=== PATIENT | female | born 2000 | race Caucasian/White ===

== ENCOUNTER 2025-01-13 12:58 | Outpatient (AMB) | payer MEDICAID, SELFPAY ==
--- NOTE | 2025-01-13 13:02 | AMB.OBINITIA ---
Vital Signs 01/13/25 13:15 Height 1.55 m Height Method Stated Weight 65.431 kg Weight Measurement Method Standing Scale BMI 27.2 BP 122/82 Blood Pressure Source Automatic Cuff Blood Pressure Location Right Upper Arm Position Sitting Respiration 17 Pulse 102 H Pulse Source Monitor Temp 97.8 F Temp Source Temporal Artery Scan Pulse Oximetry (%) 98 Oxygen Delivery Method Room Air Allergies/Home Meds Allergies & Medications Allergies No Known Allergies Allergy (Verified 01/13/25 13:16) Medication Reconciliation No Known Home Medications 01/13/25 [History Confirmed 01/13/25] Intake Visit Data Collection New Patient or Established: New Patient (never been to [facility]) Reason for Visit:: OBI Seen by Clinical Staff ONLY (RN/MA): No Automatic Equipment Technician Required: Yes Do You Feel Safe at Home: Yes Authorities Contacted: N/A PCP or OBGYN visit in last 3 months: No Hx Now: Yes Are you currently on any form of Control: No Pain Present Currently: No Pain Scale Used: Bronson-Parikh/Numerical Pain scale:: 0 Smoking Status Smoking Status: Never smoker Questionnaires Covid-19 Vaccine Questionnaire Has patient been vacinated for Covid-19 Have you been vacinated for Covid-19: No PHQ-9 PHQ-2 Over the last 2 weeks, how often have you been bothered by any of the following problems? 1. Little interest or pleasure in doing things: not at all 2. Feeling down, depressed, or hopeless: not at all Total score: 0 PHQ-9 3. Trouble falling or staying asleep, or sleeping too much: Not at all 4. Feeling tired or having little energy: Not at all 5. Poor appetite or overeating: Not at all 6. Feeling bad about yourself - or that you are a failure or have let yourself or your family down: Not at all 7. Trouble concentrating on things, such as reading the newspaper or watching television: Not at all 8. Moving or speaking so slowly that other people could have noticed? - Or the opposite - being so fidgety or restless that you have been moving around a lot more than usual: not at all 9. Thoughts that you would be better off or of hurting yourself in some way: Not at all Total score: 0 If you checked off any problems, how difficult have these problems made it for you to do your work, take care of things at home, or get along with other people?: not difficult at all Source: Developed by Drs. José Alejo, Sangeeta Chao, Pradeep Bassett and colleagues, with an educational chevy from [email or web address]. Depression screen completed yes Social History Living Situation History Marital Status: Lives With: Family Housing: House Tobacco History Smoking Status: Never smoker Alcohol History Alcohol Intake: Never Domestic Abuse History Do You Feel Safe at Home: Yes History of Present Illness HPI Narrative Melba Alvarez is a 24-year-old presenting for her initial care visit. She had a positive home test on December 08, 2024, and is now seeking her first visit. The patient reports her last menstrual period was on October 09, 2024. She mentions a previous visit to the ER, where they were unable to visualize the gestational sac, likely due to the early stage of her at that time. The patient denies any current spotting or cramping. She also denies experiencing nausea or vomiting. Prior to this visit, the patient had some blood tests done at [facility], but the results are not available for review. This is her first visit with an tower hand for this . Obstetric History - GPAL: A0 L0 - Current : - Gestational age: 11 weeks and 5 days by ultrasound - Positive home test on December 08, 2024 - Last menstrual period: October 09, 2024 Medical History - Emergency room visit in November 2024 Review of Systems Gastrointestinal: Positive for nausea. OB Initial Visit OB Flowsheet OB Flowsheet Initial Weight: Not Recorded Date <del>?</del> EGA Weight BP Alb Glu CTX Pres Fundal ht FHR Mov Dilation Station Effacement Hx Notes Visit Note 01/13/25 <del>?</del> 11w 5d 65.431 kg 122/82 at 11w5d, presenting for initial care. Positive home test on 12/08/24. LMP 10/09/24, dating confirmed by ultrasound performed today. FHT 157 bpm, viable IUP. Denies spotting, cramping, vomiting; mild nausea present. Prior ER visit noted no gestational sac, consistent with early . Labs drawn previously at [facility], results not yet available. Plan: CHERYL based on today?s ultrasound. labs ordered. Genetic screening and sex testing initiated. Provided US images. Follow-up in 4 weeks. Routine counseling given. Menstrual History Menstrual reliability: unknown Flow: normal Menstrual regularity: irregular Monthly: No Age at menarche: 12 On control pills at conception: No Date of positive home test: 12/08/24 OB History : 1 Para: 0 Hx # Pregnancies: 0 Hx Total # of Abortions (Spontaneous & Elective): 0 # of Living Children: 0 Infection History & Risk Evaluation History of STDs: none HIV risk evaluation: low risk Hepatitis B risk evaluation: low risk Patient or partner has history of Genital Herpes: No Varicella/chicken pox status: unknown Genetic Screening & History Genetic Screening/Teratology Counseling - Includes patient, baby's father, or anyone in either family with: 1. Patient's age 35 years or older as of estimated date of delivery: No 2. Thalassemia (Tuvaluan, Hungarian, Mediterranean, or Background); MCV less than 80: No 3. Neural Tube Defect (Meningomyelocele, Spina Bifida, or Anencephaly): No 4. Congenital Heart Defect: No 5. Down Syndrome: No 6. Viet-Sachs (Ashkenazi Roman Catholic, Cajun, Armenian Minco): No 7. Corby Disease (Ashkenazi Roman Catholic): No 8. Familial Dysautonomia (Ashkenazi Roman Catholic): No 9. Sickle Cell Disease or Trait (): No 10. Hemophilia or other blood disorders: No 11. Muscular Dystrophy: No 12. Cystic Fibrosis: No 13. Carolyne's Chorea: No 14. Mental Retardation/Autism: No 15. Other inherited genetic or chromosomal disorder: No 16. Maternal Metabolic Disorder (EG,TYPE 1 Diabetes, PKU): No 17. Patient or baby's father had a child with defects not listed above: No 18. Recurrent loss or a stillbirth: No 19. Medications (including supplements, vitamins, herbs or otc drugs)/illicit/recreational drugs/alcohol since last menstrual period: No 20. Any other: No Infection History 1. Live with someone with TB or exposed to TB: No 2. Rash or viral illness since last menstrual period: No 3. Hepatitis B,C: No Other (see comments) Source: [employer] Review of Systems Review of Systems Systems Reviewed: All systems reviewed, normal except as documented Exam General General Appearance: alert, in no apparent distress and healthy appearing Head Head exam: atraumatic Neck Neck exam: Present normal inspection and trachea midline Chest Chest inspection: Present normal inspection and symmetric chest wall rise External exam: Present normal external exam; Absent tenderness Neuro Neurological exam: Present oriented X3 Psych Psychiatric exam: Present normal affect and normal mood Office Procedures OB Clinic LOC & Office Proc's Nursing/Assessment Patient Status: Initial/New Patient OB Clinic Nursing Assessment: Medication Reconciliation, Update PMH in EMR and Vital Signs OB Clinic Coordination of Care: Complex Care and Chronic Disease 1-5, Consent,records obtained, informed consent, Education Simp Pt/Fam, Lab and Imaging orders and Staff clarify orders Special Needs: Heart tones New Patient Charge New Patient Point Assignment: [id number] New Patient Point Charge: TENSION WORKER Level 4 ([id number]) Assessment & Plan Diagnosis / Problem List (1) Supervision of high risk , unspecified, first trimester: Status: Acute (2) Uterine size date discrepancy: Status: Acute Plan Melba Alvarez, 24-year-old female presenting for initial care at approximately 8-10 weeks gestation based on last menstrual period. Intrauterine Assessment: Patient reports positive home test on December 08, 2024. Last menstrual period was October 09, 2024, initially suggesting 8-10 weeks gestation. Ultrasound performed during this visit confirms viable intrauterine measuring 11 weeks and 5 days. heartbeat noted at 157 bpm, which is within normal range. Previous ER visit (date not specified) did not visualize gestational sac, likely due to very early gestation at that time. Plan: - Calculated estimated due date based on ultrasound measurements - Ordered comprehensive labs - Ordered genetic testing, which will also determine sex - Provided patient with ultrasound images - Schedule follow-up appointment in 4 weeks
[2025-01-13 13:15] VITALS: BP 122/82; PULSE 102; RESP 17; TEMP 36.6; O2SAT 98; BMI 27.2
== END 2025-01-13 13:48 | disposition home or self-care (01) ==
LOC: HODSOBC 12:58
PROVIDERS: PCP Obstetrics & Gynecology; Referring Provider Obstetrics & Gynecology; Supervising Provider Obstetrics & Gynecology; Visit Provider Obstetrics & Gynecology
DX: O09.891 Supervision of other high risk pregnancies, first trimester (principal); O26.843 Uterine size-date discrepancy, third trimester; Z3A.11 11 weeks gestation of pregnancy
CPT/HCPCS: 99204; G0463

== ENCOUNTER → 2025-02-04 | Outpatient (CLI) | payer MEDICAID, SELFPAY ==
--- NOTE | 2025-02-04 14:14 | XR_ITS ---
Examination: Complete OB ultrasound, less than 14 weeks, transabdominal Date and time of exam: DecemberFebruary 04, 2025, 1428 hours INDICATIONS: with size dates discrepancy Technique: Obstetrical ultrasound images less than 14 weeks performed via transabdominal imaging Findings: A normal shaped single intrauterine gestation is present in the uterus. pole 8.2 cm corresponds to 14 weeks 1 day gestational age Cardiac motion 169 bpm Ultrasonographic survey of visible and placental structures unremarkable. Amniotic fluid volume appears appropriate for this estimated gestational age. Right ovary 2.0 cm arterial flow Left ovary 2.9 cm arterial flow IMPRESSION: Viable intrauterine gestation 13 weeks 1 day.
== END | disposition home or self-care (01) ==
PROVIDERS: PCP Physician Assistant; Referring Provider Obstetrics & Gynecology; Visit Provider Obstetrics & Gynecology
DX: O26.849 Uterine size-date discrepancy, unspecified trimester (principal); O09.91 Supervision of high risk pregnancy, unspecified, first trimester; Z3A.13 13 weeks gestation of pregnancy
CPT/HCPCS: 76801

== ENCOUNTER 2025-02-16 13:07 | Outpatient (AMB) | payer MEDICAID, SELFPAY ==
[2025-02-16 13:16] VITALS: BP 119/77; PULSE 105; RESP 22; TEMP 36.4; O2SAT 98; BMI 27.7
--- NOTE | 2025-02-16 13:16 | OBCLNT_ITS ---
Vital Signs 02/16/25 13:16 Height 1.55 m Height Method Stated Weight 66.678 kg Weight Measurement Method Standing Scale BMI 27.7 BP 119/77 Blood Pressure Source Automatic Cuff Blood Pressure Location Right Upper Arm Position Sitting Respiration 22 H Pulse 105 H Pulse Source Monitor Temp 97.5 F Temp Source Oral Pulse Oximetry (%) 98 Oxygen Delivery Method Room Air Allergies/Home Meds Allergies & Medications Allergies No Known Allergies Allergy (Verified 02/16/25 13:17) Medication Reconciliation No Known Home Medications 01/13/25 [History Confirmed 02/16/25] Intake Visit Data Collection New Patient or Established: Established Patient (seen at [facility] within 3 years) Reason for Visit:: CARE Seen by Clinical Staff ONLY (RN/MA): No Appellate Court Clerk Required: Yes Appellate Court Clerk's name/title: JOSE D ARGUELLO MA Do You Feel Safe at Home: Yes Authorities Contacted: N/A PCP or OBGYN visit in last 3 months: Yes Hx Now: Yes Are you currently on any form of Control: No Pain Present Currently: No Pain Scale Used: Bronson-Parikh/Numerical Pain scale:: 0 Smoking Status Smoking Status: Never smoker Questionnaires Covid-19 Vaccine Questionnaire Has patient been vacinated for Covid-19 Have you been vacinated for Covid-19: Yes PHQ-9 PHQ-2 Over the last 2 weeks, how often have you been bothered by any of the following problems? 1. Little interest or pleasure in doing things: not at all 2. Feeling down, depressed, or hopeless: not at all Total score: 0 PHQ-9 3. Trouble falling or staying asleep, or sleeping too much: Not at all 4. Feeling tired or having little energy: Not at all 5. Poor appetite or overeating: Not at all 6. Feeling bad about yourself - or that you are a failure or have let yourself or your family down: Not at all 7. Trouble concentrating on things, such as reading the newspaper or watching television: Not at all 8. Moving or speaking so slowly that other people could have noticed? - Or the opposite - being so fidgety or restless that you have been moving around a lot more than usual: not at all 9. Thoughts that you would be better off or of hurting yourself in some way: Not at all Total score: 0 Source: Developed by Drs. José Alejo, Sangeeta Chao, Pradeep Bassett and colleagues, with an educational chevy from [employer]. Depression screen completed yes Social History Living Situation History Lives With: Family Housing: House Tobacco History Smoking Status: Never smoker Alcohol History Alcohol Intake: Never Domestic Abuse History Do You Feel Safe at Home: Yes History of Present Illness HPI Narrative Melba Alvarez, , presents for routine visit at 16 weeks and 4 days gestation. Patient reports pain with urination. Denies blood in urine, fever, or back pain. Pain localized down here . Onset timing not specified. Denies TADEO, VC, and epigastric pain. - Melba Alvarez is a 1 para 0 at 16 weeks and 4 days gestation presenting for a routine visit. - Patient was last seen 4 weeks ago. - She reports her child has been experiencing pain while urinating. - Pain is localized down here (likely referring to lower abdominal or pelvic area). - No reported fever or back pain. - No mention of blood in the urine. - Onset timing not specified. - No other complaints or symptoms reported by the patient. Care OB Visit Log OB Flowsheet Initial Weight: Not Recorded Date -?-?-?-?-?-?-?-?-?-?-?-?- EGA Weight BP Alb Glu CTX Pres Fundal ht FHR Mov Dilation Station Effacement Hx Notes Visit Note 01/13/25 -?-?-?-?-?-?-?-?-?-?-?-?- 11w 5d 65.431 kg 122/82 at 11w5d, presenting for initial care. Positive home test on 12/08/24. LMP 10/09/24, dating confirmed by ultrasound performed today. FHT 157 bpm, viable IUP. Denies spotting, cramping, vomiting; mild nausea present. Prior ER visit noted no gestational sac, consistent with early . Labs drawn previously at [facility], results not yet available. Plan: CHERYL based on today?s ultrasound. P renatal labs ordered. Genetic screening and sex testing initiated. Provided US images. Follow-up in 4 weeks. Routine counseling given. CHERYL Calculator Estimated Delivery Date Method Current WG Current Estimate 07/30/25 Ultrasound #1 16w 4d Other Estimates 07/16/25 LMP (Certain) 18w 4d Exam General General Appearance: alert, in no apparent distress and healthy appearing Head Head exam: atraumatic Neck Neck exam: Present normal inspection and trachea midline Chest Chest inspection: Present normal inspection and symmetric chest wall rise External exam: Present normal external exam; Absent tenderness Neuro Neurological exam: Present oriented X3 Psych Psychiatric exam: Present normal affect and normal mood Office Procedures OB Clinic LOC & Office Proc's Nursing/Assessment Patient Status: Established Patient OB Clinic Nursing Assessment: Medication Reconciliation, Update PMH in EMR and Vital Signs OB Clinic Coordination of Care: Complex Care and Chronic Disease 1-5, Consent,records obtained, informed consent, Education Simp Pt/Fam, Lab and Imaging orders, Results/Orders obtained and Staff clarify orders Special Needs: Heart tones Established Patient Charge Established Patient Point Assignment: 135 Established Patient Point Charge: EP Level 4 (120-155) Assessment & Plan Diagnosis / Problem List (1) Uterine size date discrepancy: Status: Acute (2) Supervision of high risk , unspecified, first trimester: Status: Acute Plan Melba Alvarez is a 16 weeks and 4 days presenting for routine visit with recent negative labs and NIPT test. Routine care Assessment: Patient is at 16 weeks and 4 days gestation based on bedside ultrasound at 11 weeks. labs were reviewed and scanned into the chart. Blood group is B positive. Hepatitis B and C tests are negative. Rubella immune. Gonorrhea and chlamydia tests are negative. NIPT test is negative and indicates female fetus gender. heart rate is 175 bpm, which is within normal range. Plan: - Follow-up visit scheduled in 4 weeks - Referral for 20-week anatomy ultrasound pending approval - Provide gender reveal information in sealed envelope as per patient's request Urinary tract infection (suspected) Assessment: Patient reports pain with urination. No reported fever, back pain, or hematuria. Plan: - Order urine culture - Prescribe antibiotics - Educate patient on UTI symptoms and when to seek further care Heart Rate (FHR) and Dates/Viability Verified Review Labs: Confirm results and address any abnormalities with treatment or referrals. History & Symptoms: Ask about nausea, vomiting, bleeding, or cramping. Screen for mental health concerns. Physical Exam: Check weight, blood pressure, and heart rate (via Doppler). Education: Discuss nutrition, exercise, and avoiding harmful substances. Review safe medications and warning signs (e.g., severe pain, bleeding). Screening Tests: Offer genetic screening if not done. Discuss upcoming anatomy scan (18-20 weeks). Plan: Schedule next visit (typically 4 weeks later) and any needed tests. Keep it supportive, address concerns, and ensure clear follow-up instructions.
== END 2025-02-16 14:02 | disposition home or self-care (01) ==
LOC: HODSOBC 13:07
PROVIDERS: PCP Obstetrics & Gynecology; Referring Provider Obstetrics & Gynecology; Supervising Provider Obstetrics & Gynecology; Visit Provider Obstetrics & Gynecology
DX: O09.892 Supervision of other high risk pregnancies, second trimester (principal); Z3A.16 16 weeks gestation of pregnancy; O26.842 Uterine size-date discrepancy, second trimester; O99.820 Streptococcus B carrier state complicating pregnancy
CPT/HCPCS: 99214; G0463

== ENCOUNTER 2025-03-04 09:55 | Outpatient (AMB) | payer MEDICAID, SELFPAY ==
[2025-03-04 10:05] VITALS: BP 105/69; PULSE 82; RESP 17; TEMP 36.5; O2SAT 98; BMI 27.6
--- NOTE | 2025-03-04 10:05 | AMB.OBVISIT ---
Vital Signs 03/04/25 10:05 Height 1.55 m Height Method Measured Weight 66.395 kg Weight Measurement Method Standing Scale BMI 27.6 BP 105/69 Blood Pressure Source Automatic Cuff Blood Pressure Location Right Upper Arm Position Sitting Respiration 17 Pulse 82 Pulse Source Monitor Temp 97.7 F Temp Source Temporal Artery Scan Pulse Oximetry (%) 98 Oxygen Delivery Method Room Air Allergies/Home Meds Allergies & Medications Allergies No Known Allergies Allergy (Verified 03/04/25 10:06) Medication Reconciliation clotrimazole 2 % vaginal cream (Gyne-Lotrimin) 1 appful vaginal QHS 3 days #21 grams 03/04/25 [Rx] vits no.126-ferrous fum 28 mg iron-folic acid 800 mcg tablet (Classic ) tab PO 03/04/25 [History Confirmed 03/04/25] Intake Visit Data Collection New Patient or Established: Established Patient (seen at [facility] within 3 years) Reason for Visit:: OBC Consent obtained for Telemed Visit: No Seen by Clinical Staff ONLY (RN/MA): No Process Developer Required: No Do You Feel Safe at Home: Yes Authorities Contacted: N/A PCP or OBGYN visit in last 3 months: Yes Date of Last PCP or OBGYN visit: 02/16/25 Hx Now: Yes Are you currently on any form of Control: No Pain Present Currently: Yes Pain Location: Abdomen Pain scale:: 4 Smoking Status Smoking Status: Never smoker Questionnaires Covid-19 Vaccine Questionnaire Has patient been vacinated for Covid-19 Have you been vacinated for Covid-19: No PHQ-9 PHQ-2 Over the last 2 weeks, how often have you been bothered by any of the following problems? 1. Little interest or pleasure in doing things: not at all PHQ-9 8. Moving or speaking so slowly that other people could have noticed? - Or the opposite - being so fidgety or restless that you have been moving around a lot more than usual: not at all Source: Developed by Drs. José Alejo, Sangeeta Chao, Pradeep Bassett and colleagues, with an educational chevy from [employer]. Social History Living Situation History Lives With: Family Housing: House Tobacco History Smoking Status: Never smoker Alcohol History Alcohol Intake: Never Domestic Abuse History Do You Feel Safe at Home: Yes Care OB Visit Log OB Flowsheet Initial Weight: Not Recorded Date <del>?</del> EGA Weight BP Alb Glu CTX Pres Fundal ht FHR Mov Dilation Station Effacement Hx Notes Visit Note 01/13/25 <del>?</del> 11w 5d 65.431 kg 122/82 at 11w5d, presenting for initial care. Positive home test on 12/08/24. LMP 10/09/24, dating confirmed by ultrasound performed today. FHT 157 bpm, viable IUP. Denies spotting, cramping, vomiting; mild nausea present. Prior ER visit noted no gestational sac, consistent with early . Labs drawn previously at [facility], results not yet available. Plan: CHERYL based on today?s ultrasound. labs ordered. Genetic screening and sex testing initiated. Provided US images. Follow-up in 4 weeks. Routine counseling given. 03/04/25 <del>?</del> 18w 6d 66.395 kg 105/69 absent unknown 18 145 active Follow-up on ER visit. Patient was seen at [place] [address] for complaints of ligament pain and discomfort. Ultrasound was done and patient was 18 weeks 2 at that ultrasound. And this confirmed a due date August 01. She had positive yeast in the NuSwab. Otherwise her labs her CMP her CBC UA were all normal. Patient was treated with fluconazole x 1. She was also given Zofran 0.4 x 1 and discharged home. Today patient has continued burning with urination. Reports slight movement. No cramps no bleeding no leaking. New swab plus today. aFP today. I gave patient CHEMICAL PRODUCTION TECHNICIAN Lotrimin x [address] twice daily and discussed comfort measures for vaginitis. I also discussed comfort measures for second trimester discomforts. Patient says she has a follow-up appointment with OB March 10. And she has an MFM ultrasound scheduled for March. SAB precautions given. And patient return in 4 weeks OB check CHERYL Calculator Estimated Delivery Date Method Current WG Current Estimate 07/30/25 Ultrasound #1 18w 6d Other Estimates 07/16/25 LMP (Certain) 20w 6d Office Procedures OB Clinic LOC & Office Proc's Nursing/Assessment Patient Status: Established Patient OB Clinic Nursing Assessment: Medication Reconciliation, Update PMH in EMR and Vital Signs OB Clinic Coordination of Care: Complex Care and Chronic Disease 1-5, Consent,records obtained, informed consent, Education Simp Pt/Fam and 4+ Authorizations needed Special Needs: Heart tones Established Patient Charge Established Patient Point Assignment: 130 Established Patient Point Charge: EP Level 4 (120-155) Assessment & Plan Diagnosis / Problem List (1) Encounter for supervision of other normal , second trimester: Status: Acute (2) Vaginitis: Status: Acute Plan New swab today. Gyne-Lotrimin x 7 twice daily. Comfort measures for vaginitis discussed. Keep appointment for MFM ultrasound next month. And keep appointment with OB on March 10. Increase fluids. I reviewed discomforts that are normal to in the second trimester. Additional Plan Follow Up: 3 Weeks (obc)
== END 2025-03-04 10:42 | disposition home or self-care (01) ==
LOC: HODSOBC 09:55
PROVIDERS: PCP Physician Assistant; Referring Provider Physician Assistant; Supervising Provider Advanced Practice Midwife; Visit Provider Advanced Practice Midwife
DX: O09.892 Supervision of other high risk pregnancies, second trimester (principal); O23.592 Infection of other part of genital tract in pregnancy, second trimester; N76.0 Acute vaginitis; Z3A.18 18 weeks gestation of pregnancy
CPT/HCPCS: 99214; G0463

== ENCOUNTER 2025-03-19 08:26 | Outpatient (AMB) | payer MEDICAID, SELFPAY ==
[2025-03-19 08:31] VITALS: BP 110/76; PULSE 84; RESP 17; TEMP 36.5; O2SAT 98; BMI 28.2
--- NOTE | 2025-03-19 08:31 | OBCLNT_ITS ---
Vital Signs 03/19/25 08:31 Height 1.55 m Height Method Stated Weight 67.812 kg Weight Measurement Method Standing Scale BMI 28.2 BP 110/76 Blood Pressure Source Automatic Cuff Blood Pressure Location Right Upper Arm Position Sitting Respiration 17 Pulse 84 Pulse Source Monitor Temp 97.7 F Temp Source Temporal Artery Scan Pulse Oximetry (%) 98 Oxygen Delivery Method Room Air Allergies/Home Meds Allergies & Medications Allergies No Known Allergies Allergy (Verified 04/27/25 14:06) Medication Reconciliation clotrimazole 2 % vaginal cream (Gyne-Lotrimin) 1 appful vaginal QHS 3 days #21 grams 03/04/25 [Rx Confirmed 04/27/25] vits no.126-ferrous fum 28 mg iron-folic acid 800 mcg tablet (Classic ) tab PO 03/04/25 [History Confirmed 04/27/25] Intake Visit Data Collection New Patient or Established: Established Patient (seen at [facility] within 3 years) Reason for Visit:: OBC Seen by Clinical Staff ONLY (RN/MA): No Sleeper Cutter Required: Yes Sleeper Cutter's name/title: JOSE D SHARMA / RINA Do You Feel Safe at Home: Yes Authorities Contacted: N/A PCP or OBGYN visit in last 3 months: Yes Date of Last PCP or OBGYN visit: 03/04/25 Hx Now: Yes Are you currently on any form of Control: No Pain Present Currently: No Pain Scale Used: Bronson-Parikh/Numerical Pain scale:: 0 Smoking Status Smoking Status: Never smoker Questionnaires Covid-19 Vaccine Questionnaire Has patient been vacinated for Covid-19 Have you been vacinated for Covid-19: Yes PHQ-9 PHQ-2 Over the last 2 weeks, how often have you been bothered by any of the following problems? 1. Little interest or pleasure in doing things: not at all 2. Feeling down, depressed, or hopeless: not at all Total score: 0 PHQ-9 3. Trouble falling or staying asleep, or sleeping too much: Not at all 4. Feeling tired or having little energy: Not at all 5. Poor appetite or overeating: Not at all 6. Feeling bad about yourself - or that you are a failure or have let yourself or your family down: Not at all 7. Trouble concentrating on things, such as reading the newspaper or watching television: Not at all 8. Moving or speaking so slowly that other people could have noticed? - Or the opposite - being so fidgety or restless that you have been moving around a lot more than usual: not at all 9. Thoughts that you would be better off or of hurting yourself in some way: Not at all Total score: 0 If you checked off any problems, how difficult have these problems made it for you to do your work, take care of things at home, or get along with other people?: not difficult at all Source: Developed by Drs. José Alejo, Sangeeta Chao, Pradeep Bassett and colleagues, with an educational chevy from [email or web address]. Depression screen completed yes Social History Living Situation History Marital Status: Lives With: Family Housing: House Tobacco History Smoking Status: Never smoker Second Hand Smoke Exposure: No Alcohol History Alcohol Intake: Never Domestic Abuse History Do You Feel Safe at Home: Yes Care OB Visit Log OB Flowsheet Initial Weight: Not Recorded Date -?-?-?-?-?-?-?-?-?-?-?-?- EGA Weight BP Alb Glu CTX Pres Fundal ht FHR Mov Dilation Station Effacement Hx Notes Visit Note 01/13/25 -?-?-?-?-?-?-?-?-?-?-?-?- 11w 5d 65.431 kg 122/82 at 11w5d, presenting for initial care. Positive home test on 12/08/24. LMP 10/09/24, dating confirmed by ultrasound performed today. FHT 157 bpm, viable IUP. Denies spotting, cramping, vomiting; mild nausea present. Prior ER visit noted no gestational sac, consistent with early . Labs drawn previously at [facility], results not yet available. Plan: CHERYL based on today?s ultrasound. P renatal labs ordered. Genetic screening and sex testing initiated. Provided US images. Follow-up in 4 weeks. Routine counseling given. 03/04/25 -?-?-?-?-?-?-?--?-?-?-?-?- 18w 6d 66.395 kg 105/69 absent unknown 18 145 active Follow-up on ER visit. Patient was seen at [place] [id number] for complaints of ligament pain and discomfort. Ultrasound was done and patient was 18 weeks 2 at that ultrasound. And this confirmed a due date August 01. She had positive yeast in the NuSwab. Otherwise her labs her CMP her CBC UA were all normal. Patient was treated with fluconazole x 1. She was also given Zofran 0.4 x 1 and discharged home. Today patient has continued burning with urination. Reports slight movement. No cramps no bleeding no leaking. New swab plus today. aFP today. 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 I also discussed comfort measures for second trimester discomforts. Patient says she has a follow-up appointment with OB March 10. And she has an M ultrasound scheduled for March. SAB precautions given. And patient return in 4 weeks OB check 03/19/25 -?-?-?-?-?-?-?-?-?-?-?-?- 21w 0d 67.812 kg 110/76 absent unknown 22 140 active - Patient recently visited the emergency room and had a follow-up with Bree, who prescribed creams and tablets for an unspecified condition. - Patient reports completing the [facility] ribed treatment. - She states feeling better with no mo re discomfort and improved discharge. - Patient reports experiencing acid refl ux. - No other complaints or symptoms mentioned. - Attend scheduled ultrasound at [facility] on Saturday - Complete glucose tolerance test (patie nt given test order) - Take omeprazole for acid reflux for th e remainder of - Follow up with [facility] for potential repea t ultrasound due to low BFI (6.8) at 27- 28 weeks 04/27/25 -?-?-?-?-?-?-?-?-?-?-?-?- 26w 4d 70.874 kg 111/72 absent unknown 26 145 active No OB complaints. Denies cramping. Denies leaking, denies bleeding. Reports good Discussed third trimester labs. Discussed ultrasound and dates. Reviewed labor precautions. Increase fluids. Return in 3 weeks OB check CHERYL Calculator Estimated Delivery Date Method Current WG Current Estimate 07/30/25 Ultrasound #2 30w 4d Other Estimates 07/16/25 LMP (Certain) 32w 4d 07/30/25 Ultrasound #1 30w 4d 07/30/25 Manual 30w 4d final CHERYL: 07/12 05/06. efw: 52% Notes Visit Date: 04/27/25 Last Updated by: Bree Chand CNM 03/26: 3rd tri labs wnl Assessment & Plan Diagnosis / Problem List (1) Encounter for care in third trimester of first : Status: Acute (2) Vaginitis: Status: Acute (3) Uterine size date discrepancy: Status: Acute Plan Problem List - Gestational diabetes mellitus - Chronic hypertension - Gastroesophageal reflux disease Assessment Patient is a 21-week woman presenting for routine care. She recently visited the emergency room and was subsequently seen by Bree, who prescribed creams and tablets for an unspecified condition, which have since resolved her symptoms. The patient has a history of chronic hypertension and gestational diabetes mellitus, requiring significant insulin therapy. A recent biophysical profile (BPP) at triage revealed an amniotic fluid index (BRIJESH) of 6.8, which is considered low for gestational age. The patient also reports experiencing acid reflux symptoms. Plan - Attend scheduled ultrasound at [facility] on Saturday - Complete glucose tolerance test (patient given test order) - Take omeprazole for acid reflux for the remainder of - Follow up with [facility] for potential repeat ultrasound due to low BFI (6.8) at 27- 28 weeks 1. Progress Reviewed gestational age, growth, and heart rate. Planned frequent visits (every 2 weeks until 36 weeks, then weekly). 2. Instructed patient to monitor movements and report decreases immediately. 3. Testing Counseled on routine third-trimester labs per guidelines. Discussed potential need for ultrasound or monitoring based on risk factors. 4. Preeclampsia Precaution Educated on preeclampsia signs: severe headache, vision changes, right upper quadrant pain, sudden swelling. Advised urgent reporting of symptoms and discussed blood pressure monitoring if high risk. 5. Labor Precautions Reviewed labor signs: regular contractions, pelvic pressure, back pain, bleeding, or fluid leakage. Instructed to seek immediate care for these symptoms. 6. Lifestyle and Delivery Preparation Reinforced vitamins, nutrition, and safe activity. Discussed plan, pain management, and . Advised on labor preparation (e.g., hospital bag) and expectations. 7. Psychosocial Support Assessed emotional well-being and offered resources for mental health or parenting support.
== END 2025-03-19 09:04 | disposition home or self-care (01) ==
LOC: HODSOBC 08:26
PROVIDERS: PCP Physician Assistant; Referring Provider Physician Assistant; Supervising Provider Obstetrics & Gynecology; Visit Provider Obstetrics & Gynecology
DX: O09.892 Supervision of other high risk pregnancies, second trimester (principal); O26.842 Uterine size-date discrepancy, second trimester; O23.592 Infection of other part of genital tract in pregnancy, second trimester; N76.0 Acute vaginitis; O24.414 Gestational diabetes mellitus in pregnancy, insulin controlled; O10.912 Unspecified pre-existing hypertension complicating pregnancy, second trimester; O99.612 Diseases of the digestive system complicating pregnancy, second trimester; K21.9 Gastro-esophageal reflux disease without esophagitis; Z3A.21 21 weeks gestation of pregnancy
CPT/HCPCS: 99213; G0463

== ENCOUNTER 2025-04-27 13:34 | Outpatient (AMB) | payer MEDICAID, SELFPAY ==
[2025-04-27 14:05] VITALS: BP 111/72; PULSE 91; RESP 18; TEMP 36.3; O2SAT 98; BMI 29.5
--- NOTE | 2025-04-27 14:05 | OBCLNT_ITS ---
Vital Signs 04/27/25 14:05 Height 1.55 m Height Method Stated Weight 70.874 kg Weight Measurement Method Standing Scale BMI 29.5 BP 111/72 Blood Pressure Source Automatic Cuff Blood Pressure Location Left Upper Arm Position Sitting Respiration 18 Pulse 91 Pulse Source Monitor Temp 97.3 F Temp Source Oral Pulse Oximetry (%) 98 Oxygen Delivery Method Room Air Allergies/Home Meds Allergies & Medications Allergies No Known Allergies Allergy (Verified 04/27/25 14:06) Medication Reconciliation clotrimazole 2 % vaginal cream (Gyne-Lotrimin) 1 appful vaginal QHS 3 days #21 grams 03/04/25 [Rx Confirmed 04/27/25] vits no.126-ferrous fum 28 mg iron-folic acid 800 mcg tablet (Classic ) tab PO 03/04/25 [History Confirmed 04/27/25] Intake Visit Data Collection New Patient or Established: Established Patient (seen at [facility] within 3 years) Reason for Visit:: CARE Seen by Clinical Staff ONLY (RN/MA): No Junior Bookkeeper Required: No Do You Feel Safe at Home: Yes Authorities Contacted: N/A PCP or OBGYN visit in last 3 months: Yes Hx Now: Yes Are you currently on any form of Control: No Pain Present Currently: No Pain Scale Used: Bronson-Parikh/Numerical Pain scale:: 0 Smoking Status Smoking Status: Never smoker Questionnaires Covid-19 Vaccine Questionnaire Has patient been vacinated for Covid-19 Have you been vacinated for Covid-19: Yes PHQ-9 PHQ-2 Over the last 2 weeks, how often have you been bothered by any of the following problems? 1. Little interest or pleasure in doing things: not at all 2. Feeling down, depressed, or hopeless: not at all Total score: 0 PHQ-9 3. Trouble falling or staying asleep, or sleeping too much: Not at all 4. Feeling tired or having little energy: Not at all 5. Poor appetite or overeating: Not at all 6. Feeling bad about yourself - or that you are a failure or have let yourself or your family down: Not at all 7. Trouble concentrating on things, such as reading the newspaper or watching television: Not at all 8. Moving or speaking so slowly that other people could have noticed? - Or the opposite - being so fidgety or restless that you have been moving around a lot more than usual: not at all 9. Thoughts that you would be better off or of hurting yourself in some way: Not at all Total score: 0 Source: Developed by Drs. José Alejo, Sangeeta Chao, Pradeep Bassett and colleagues, with an educational chevy from [employer]. Depression screen completed yes Social History Living Situation History Lives With: Family Housing: House Tobacco History Smoking Status: Never smoker Second Hand Smoke Exposure: No Alcohol History Alcohol Intake: Never Domestic Abuse History Do You Feel Safe at Home: Yes Care OB Visit Log OB Flowsheet Initial Weight: Not Recorded Date -?-?-?-?-?-?-?-?-?-?-?-?- EGA Weight BP Alb Glu CTX Pres Fundal ht FHR Mov Dilation Station Effacement Hx Notes Visit Note 01/13/25 -?-?-?-?-?-?-?-?-?-?-?-?- 11w 5d 65.431 kg 122/82 at 11w5d, presenting for initial care. Positive home test on 12/08/24. LMP 10/09/24, dating confirmed by ultrasound performed today. FHT 157 bpm, viable IUP. Denies spotting, cramping, vomiting; mild nausea present. Prior ER visit noted no gestational sac, consistent with early . Labs drawn previously at [facility], results not yet available. Plan: CHERYL based on today?s ultrasound. P renatal labs ordered. Genetic screening and sex testing initiated. Provided US images. Follow-up in 4 weeks. Routine counseling given. 03/04/25 -?-?-?-?-?-?-?-?-?-?-?-?- 18w 6d 66.395 kg 105/69 absent unknown 18 145 active Follow-up on ER visit. Patient was seen at [place] [address] for complaints of ligament pain and discomfort. Ultrasound was done and patient was 18 weeks 2 at that ultrasound. And this confirmed a due date August 01. She had positive yeast in the NuSwab. Otherwise her labs her CMP her CBC UA were all normal. Patient was treated with fluconazole x 1. She was also given Zofran 0.4 x 1 and discharged home. Today patient has continued burning with urination. Reports slight movement. No cramps no bleeding no leaking. New swab plus today. aFP today. 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 I also discussed comfort measures for second trimester discomforts. Patient says she has a follow-up appointment with OB March 10. And she has an M ultrasound scheduled for March. SAB precautions given. And patient return in 4 weeks OB check 04/27/25 -?-?-?-?-?-?-?-?-?-?-?-?- 26w 4d 70.874 kg 111/72 absent unknown 26 145 active No OB complaints. Denies cramping. Denies leaking, denies bleeding. Reports good Discussed third trimester labs. Discussed ultrasound and dates. Reviewed labor precautions. Increase fluids. Return in 3 weeks OB check CHERYL Calculator Estimated Delivery Date Method Current WG Current Estimate 07/30/25 Ultrasound #2 26w 4d Other Estimates 07/16/25 LMP (Certain) 28w 4d 07/30/25 Ultrasound #1 26w 4d 07/30/25 Manual 26w 4d final CHERYL: 07/12 05/06. efw: 52% Notes Visit Date: 04/27/25 Last Updated by: Bree Chand CNM 03/26: 3rd tri labs wnl Office Procedures OB Clinic LOC & Office Proc's Nursing/Assessment Patient Status: Established Patient OB Clinic Nursing Assessment: Medication Reconciliation, Update PMH in EMR and Vital Signs OB Clinic Coordination of Care: Complex Care and Chronic Disease 1-5, Consent,records obtained, informed consent, Education Simp Pt/Fam, 1 Ins Authorization, Lab and Imaging orders, Results/Orders obtained and Staff clarify orders Special Needs: Heart tones Established Patient Charge Established Patient Point Assignment: 150 Established Patient Point Charge: EP Level 4 (120-155) Assessment & Plan Diagnosis / Problem List (1) Encounter for supervision of other normal , second trimester: Status: Acute Plan I discussed third trimester lab results and sono results. Discussed labor precautions. Continue to increase fluids. Continue vitamins. Return in 3 weeks check Additional Plan Follow Up: 3 Weeks (obc)
== END 2025-04-27 14:29 | disposition home or self-care (01) ==
LOC: HODSOBC 13:34
PROVIDERS: Supervising Provider Advanced Practice Midwife; Visit Provider Advanced Practice Midwife
DX: Z34.02 Encounter for supervision of normal first pregnancy, second trimester (principal); Z3A.26 26 weeks gestation of pregnancy
CPT/HCPCS: 99214; G0463

== ENCOUNTER 2025-05-26 13:14 | Outpatient (AMB) | payer MEDICAID, SELFPAY ==
[2025-05-26 13:17] VITALS: BP 117/79; PULSE 105; RESP 18; TEMP 36.2; O2SAT 98; BMI 30.4
--- NOTE | 2025-05-26 13:17 | OBCLNT_ITS ---
Vital Signs 05/26/25 13:17 Height 1.55 m Height Method Stated Weight 73.085 kg Weight Measurement Method Standing Scale BMI 30.4 BP 117/79 Blood Pressure Source Automatic Cuff Blood Pressure Location Left Upper Arm Position Sitting Respiration 18 Pulse 105 H Pulse Source Monitor Temp 97.1 F Temp Source Oral Pulse Oximetry (%) 98 Oxygen Delivery Method Room Air Allergies/Home Meds Allergies & Medications Allergies No Known Allergies Allergy (Verified 05/26/25 13:31) Medication Reconciliation clotrimazole 2 % vaginal cream (Gyne-Lotrimin) 1 appful vaginal QHS 3 days #21 grams 03/04/25 [Rx Confirmed 05/26/25] vits no.126-ferrous fum 28 mg iron-folic acid 800 mcg tablet (Classic ) tab PO 03/04/25 [History Confirmed 05/26/25] Intake Visit Data Collection New Patient or Established: Established Patient (seen at [facility] within 3 years) Reason for Visit:: CARE Seen by Clinical Staff ONLY (RN/MA): No 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 1. Little interest or pleasure in doing things: not at all 2. Feeling down, depressed, or hopeless: not at all Total score: 0 PHQ-9 3. Trouble falling or staying asleep, or sleeping too much: Not at all 4. Feeling tired or having little energy: Not at all 5. Poor appetite or overeating: Not at all 6. Feeling bad about yourself - or that you are a failure or have let yourself or your family down: Not at all 7. Trouble concentrating on things, such as reading the newspaper or watching television: Not at all 8. Moving or speaking so slowly that other people could have noticed? - Or the opposite - being so fidgety or restless that you have been moving around a lot more than usual: not at all 9. Thoughts that you would be better off or of hurting yourself in some way: Not at all Total score: 0 Source: Developed by Drs. José Alejo, Sangeeta Chao, Pradeep Bassett and colleagues, with an educational chevy from [employer]. Depression screen completed yes Social History Living Situation History Lives With: Family Housing: House Tobacco History Smoking Status: Never smoker Second Hand Smoke Exposure: No Alcohol History Alcohol Intake: Never Domestic Abuse History Do You Feel Safe at Home: Yes Care OB Visit Log OB Flowsheet Initial Weight: Not Recorded Date -?-?-?-?-?-?-?-?-?-?-?-?- EGA Weight BP Alb Glu CTX Pres Fundal ht FHR Mov Dilation Station Effacement Hx Notes Visit Note 01/13/25 -?-?-?-?-?-?-?-?-?-?-?-?- 11w 5d 65.431 kg 122/82 at 11w5d, presenting for initial care. Positive home test on 12/08/24. LMP 10/09/24, dating confirmed by ultrasound performed today. FHT 157 bpm, viable IUP. Denies spotting, cramping, vomiting; mild nausea present. Prior ER visit noted no gestational sac, consistent with early . Labs drawn previously at [facility], results not yet available. Plan: CHERYL based on today?s ultrasound. P renatal labs ordered. Genetic screening and sex testing initiated. Provided US images. Follow-up in 4 weeks. Routine counseling given. 03/04/25 -?-?-?-?-?-?-?-?-?-?-?-?- 18w 6d 66.395 kg 105/69 absent unknown 18 145 active Follow-up on ER visit. Patient was seen at [place] [address] for complaints of ligament pain and discomfort. Ultrasound was done and patient was 18 weeks 2 at that ultrasound. And this confirmed a due date August 01. She had positive yeast in the NuSwab. Otherwise her labs her CMP her CBC UA were all normal. Patient was treated with fluconazole x 1. She was also given Zofran 0.4 x 1 and discharged home. Today patient has continued burning with urination. Reports slight movement. No cramps no bleeding no leaking. New swab plus today. aFP today. I gave patient [employer] Lotrimin x [address] twice daily and discussed comfort measures for vaginitis. I also discussed comfort measures for second trimester discomforts. Patient says she has a follow-up appointment with OB March 10. And she has an [facility] ultrasound scheduled for March. SAB precautions given. And patient return in 4 weeks OB check 03/19/25 -?-?-?-?-?-?-?-?-?-?-?-?- 21w 0d 67.812 kg 110/76 absent unknown 22 140 active - Patient recently visited the emergency room and had a follow-up with Bree, who prescribed creams and tablets for an unspecified condition. - Patient reports completing the [facility] ribed treatment. - She states feeling better with no mo re discomfort and improved discharge. - Patient reports experiencing acid refl ux. - No other complaints or symptoms mentioned. - Attend scheduled ultrasound at [facility] on Saturday - Complete glucose tolerance test (patie nt given test order) - Take omeprazole for acid reflux for th e remainder of - Follow up with [facility] for potential repea t ultrasound due to low BFI (6.8) at 27-28 weeks 04/27/25 -?-?-?-?-?-?-?-?-?-?-?-?- 26w 4d 70.874 kg 111/72 absent unknown 26 145 active No OB complaints. Denies cramping. Denies leaking, denies bleeding. Reports good Discussed third trimester labs. Discussed ultrasound and dates. Reviewed labor precautions. Increase fluids. Return in 3 weeks OB check 05/26/25 -?-?-?-?-?-?-?-?-?-?-?-?- 30w 5d 73.085 kg 117/79 absent unknown 29 135 active Reports good movement. No OB complaints. Denies leaking, bleeding, contractions. Patient agrees to Tdap Tdap today. [facility] ultrasound for growth. Discussed labor precautions. Increase fluids. Continue prenatals. Return in 2 weeks OB CHERYL Calculator Estimated Delivery Date Method Current WG Current Estimate 07/30/25 Ultrasound #2 30w 5d Other Estimates 07/16/25 LMP (Certain) 32w 5d 07/30/25 Ultrasound #1 30w 5d 07/30/25 Manual 30w 5d final CHERYL: 07/12 05/06. efw: 52% Notes Visit Date: 04/27/25 Last Updated by: Bree Chand CNM 03/26: 3rd tri labs wnl Office Procedures OBC Clinic LOC & Office Proc's Nursing/Assessment Patient Status: Established Patient OB Clinic Nursing Assessment: Medication Reconciliation, Update PMH in EMR and Vital Signs OB Clinic Coordination of Care: Complex Care and Chronic Disease 1-5, Consent,records obtained, informed consent, Education Simp Pt/Fam, Lab and Imaging orders, Results/Orders obtained and Staff clarify orders Special Needs: Heart tones Established Patient Charge Established Patient Point Assignment: 135 Established Patient Point Charge: EP Level 4 (120-155) Injection/Vaccine Admin SQ Im Injection: Yes Immunizations diphth,pertus(acell),tetanus 2.5 Lf unit-8 mcg-5 Lf/0.5mL IM syringe Performing Provider: Bree Chand CNM Performing Location: [facility] Clinic Administered by: Shi Prajapati MA on 05/26/25 16:42 Dose Route Admin Location Dispensed Lot Number Expiration Date Pack age [facility] Community Representative 0.5 mL IM Left Deltoid 0.5 mL [id number] 09/08/26 [id number] mSeller VIS Given Date VIS Provided VIS Publication Date 05/26/25 Single Vaccine 24 Eligibility Eligibility Date Funding Source Public Non-[facility] Assessment & Plan Diagnosis / Problem List (1) Encounter for care in third trimester of first : Status: Acute Plan Tdap today. Ultrasound for growth. At [facility]. Discussed labor precautions. Increase fluids. Discussed danger signs symptoms. And return in 2 weeks OB check Additional Plan Follow Up: 2 Weeks (obc)
== END 2025-05-26 14:33 | disposition home or self-care (01) ==
LOC: HODSOBC 13:14
PROVIDERS: Supervising Provider Advanced Practice Midwife; Visit Provider Advanced Practice Midwife
DX: Z34.03 Encounter for supervision of normal first pregnancy, third trimester (principal); Z3A.30 30 weeks gestation of pregnancy; Z23 Encounter for immunization
CPT/HCPCS: 90471; 90715; 96372; 99214; G0463

== ENCOUNTER 2025-06-10 16:58 | Observation (INO) | payer MEDICAID, SELFPAY ==
[2025-06-10] VITALS (15 sets, daily range): BP systolic 112–117; BP diastolic 71; PULSE 74–91; RESP 16–98; TEMP 37; O2SAT 89–99; BMI 29.6
--- NOTE | 2025-06-10 17:44 | XR_ITS ---
Examination: OB Transvaginal ultrasound of the pelvis, limited Technique: Transvaginal sonographic images pelvis performed using braxton scale imaging Exam date and time: June 10, 2025, 1752 hours INDICATIONS: Pelvic contractions today, unknown cervical length FINDINGS: Cervix 3.5 cm closed IMPRESSION: Cervix 3.5 cm closed.
[2025-06-10 18:15] LABS: Collection Type, Urine Clean Catch
[2025-06-10 18:23] LABS: Bacteria,Urine 4+; Bilirubin,Urine Negative (Negative); Blood,Urine Negative (Negative); Clarity,Urine Turbid (Clear/Hazy); Color,Urine Lt-Yellow (Lt Yel-Yel); Glucose, Urine Negative (Negative); Ketones,Urine Negative (Negative); Leukocyte Esterase,Urine Positive (Negative); Nitrite,Urine Negative (Negative); PH,Urine 7.0 (5.0-7.0); Protein,Urine Negative (Neg - Trace); RBC,Urine 3 /hpf (0-3); Specific Gravity,Urine 1.010 (1.001-1.035); Squamous Epithelial Cell,Urine 17 /hpf (0-5); Urobilinogen,Urine Negative mg/dL (0.0-1.0); WBC,Urine 4 /hpf (0-5)
[2025-06-10 18:52] LABS: FFN Specimen Descripton Clr Colrless Aqueous; Fetal Fibronectin Negative (Negative)
== END 2025-06-10 20:10 | disposition home or self-care (01) ==
PROVIDERS: Admitting Provider Obstetrics & Gynecology; Visit Provider Obstetrics & Gynecology
DX: O26.893 Other specified pregnancy related conditions, third trimester (principal); Z3A.32 32 weeks gestation of pregnancy; R10.30 Lower abdominal pain, unspecified
CPT/HCPCS: 59025; 59899; 76817; 81001; 82731

== ENCOUNTER 2025-06-23 13:11 | Outpatient (AMB) | payer MEDICAID, SELFPAY ==
--- NOTE | 2025-06-23 13:18 | OBCLNT_ITS ---
Vital Signs 06/23/25 13:19 Height 1.55 m Height Method Stated Weight 74.162 kg Weight Measurement Method Standing Scale BMI 30.9 BP 110/71 Blood Pressure Source Automatic Cuff Blood Pressure Location Right Upper Arm Position Sitting Respiration 18 Pulse 94 Pulse Source Monitor Temp 98.0 F Temp Source Temporal Artery Scan Pulse Oximetry (%) 97 Oxygen Delivery Method Room Air Allergies/Home Meds Allergies & Medications Allergies No Known Allergies Allergy (Verified 06/23/25 13:20) Medication Reconciliation vits no.126-ferrous fum 28 mg iron-folic acid 800 mcg tablet (Classic ) 1 tab PO QDAY 03/04/25 [History Confirmed 06/23/25] Intake Visit Data Collection New Patient or Established: Established Patient (seen at [facility] within 3 years) Reason for Visit:: OBC Seen by Clinical Staff ONLY (RN/MA): No 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 Required: No Do You Feel Safe at Home: Yes Authorities Contacted: N/A PCP or OBGYN visit in last 3 months: Yes Date of Last PCP or OBGYN visit: 05/26/25 Hx Now: Yes Are you currently on any form of Control: No Pain Present Currently: No Pain Scale Used: Bronson-Parikh/Numerical Pain scale:: 0 Smoking Status Smoking Status: Never smoker Immunizations Flu Vaccine in the Last 12 Months: No Flu Vaccine Exclusion Criteria: No Exclusion Criteria Questionnaires Covid-19 Vaccine Questionnaire Has patient been vacinated for Covid-19 Have you been vacinated for Covid-19: No PHQ-9 PHQ-2 Over the last 2 weeks, how often have you been bothered by any of the following problems? 1. Little interest or pleasure in doing things: not at all 2. Feeling down, depressed, or hopeless: not at all Total score: 0 PHQ-9 3. Trouble falling or staying asleep, or sleeping too much: Not at all 4. Feeling tired or having little energy: Not at all 5. Poor appetite or overeating: Not at all 6. Feeling bad about yourself - or that you are a failure or have let yourself or your family down: Not at all 7. Trouble concentrating on things, such as reading the newspaper or watching television: Not at all 8. Moving or speaking so slowly that other people could have noticed? - Or the opposite - being so fidgety or restless that you have been moving around a lot more than usual: not at all 9. Thoughts that you would be better off or of hurting yourself in some way: Not at all Total score: 0 If you checked off any problems, how difficult have these problems made it for you to do your work, take care of things at home, or get along with other people?: not difficult at all Source: Developed by Drs. José Alejo, Sangeeta Chao, Pradeep Bassett and colleagues, with an educational chevy from [employer]. Depression screen completed yes Social History Living Situation History Marital Status: Lives With: Family Housing: House Tobacco History Smoking Status: Never smoker Second Hand Smoke Exposure: No Alcohol History Alcohol Intake: Never Domestic Abuse History Do You Feel Safe at Home: Yes Care OB Visit Log OB Flowsheet Initial Weight: Not Recorded Date -?-?-?-?-?-?-?-?-?-?-?-?- EGA Weight BP Alb Glu CTX Pres Fundal ht FHR Mov Dilation Station Effacement Hx Notes Visit Note 01/13/25 -?-?-?-?-?-?-?-?-?-?-?-?- 11w 5d 65.431 kg 122/82 at 11w5d, presenting for initial care. Positive home test on 12/08/24. LMP 10/09/24, dating confirmed by ultrasound performed today. FHT 157 bpm, viable IUP. Denies spotting, cramping, vomiting; mild nausea present. Prior ER visit noted no gestational sac, consistent with early . Labs drawn previously at [facility], results not yet available. Plan: CHERYL based on today?s ultrasound. P renatal labs ordered. Genetic screening and sex testing initiated. Provided US images. Follow-up in 4 weeks. Routine counseling given. 03/04/25 -?-?-?-?-?-?-?-?-?-?-?-?- 18w 6d 66.395 kg 105/69 absent unknown 18 145 active Follow-up on ER visit. Patient was seen at [place] [address] for complaints of ligament pain and discomfort. Ultrasound was done and patient was 18 weeks 2 at that ultrasound. And this confirmed a due date August 01. She had positive yeast in the NuSwab. Otherwise her labs her CMP her CBC UA were all normal. Patient was treated with fluconazole x 1. She was also given Zofran 0.4 x 1 and discharged home. Today patient has continued burning with urination. Reports slight movement. No cramps no bleeding no leaking. New swab plus today. aFP today. 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 I also discussed comfort measures for second trimester discomforts. Patient says she has a follow-up appointment with OB March 10. And she has an [facility] ultrasound scheduled for March. SAB precautions given. And patient return in 4 weeks OB check 03/19/25 -?-?-?-?-?-?-?-?-?-?-?-?- 21w 0d 67.812 kg 110/76 absent unknown 22 140 active - Patient recently visited the emergency room and had a follow-up with Bree, who prescribed creams and tablets for an unspecified condition. - Patient reports completing the [facility] ribed treatment. - She states feeling better with no mo re discomfort and improved discharge. - Patient reports experiencing acid refl ux. - No other complaints or symptoms mentioned. - Attend scheduled ultrasound at [facility] on Saturday - Complete glucose tolerance test (dahiana nt given test order) - Take omeprazole for acid reflux for th e remainder of - Follow up with [facility] for potential repea t ultrasound due to low BFI (6.8) at 27- 28 weeks 04/27/25 -?-?-?-?-?-?-?-?-?-?-?-?- 26w 4d 70.874 kg 111/72 absent unknown 26 145 active No OB complaints. Denies cramping. Denies leaking, denies bleeding. Reports good Discussed third trimester labs. Discussed ultrasound and dates. Reviewed labor precautions. Increase fluids. Return in 3 weeks OB check 05/26/25 -?-?-?-?-?-?-?-?-?-?-?-?- 30w 5d 73.085 kg 117/79 absent unknown 29 135 active Reports good movement. No OB complaints. Denies leaking, bleeding, contractions. Patient agrees to Tdap Tdap today. [facility] ultrasound for growth. Discussed labor precautions. Increase fluids. Continue prenatals. Return in 2 weeks OB 06/23/25 -?-?-?-?-?-?-?-?-?-?-?-?- 34w 5d 74.162 kg 110/71 absent cephalic 34 135 active Reports good movement. Denies lyses leaking, bleeding, contractions GBS next visit. Discussed labor precautions kick count twice a day. Return in a week CHERYL Calculator Estimated Delivery Date Method Current WG Current Estimate 07/30/25 Ultrasound #2 34w 5d Other Estimates 07/16/25 LMP (Certain) 36w 5d 07/30/25 Ultrasound #1 34w 5d 07/30/25 Manual 34w 5d final CHERYL: 07/12 05/06. efw: 52% Notes Visit Date: 06/23/25 Last Updated by: Bree Chand CNM 06/14/25: 32w6. EFW: 32.6%/normal BRIJESH, vtx Visit Date: 04/27/25 Last Updated by: Bree Chand CNM 03/26: 3rd tri labs wnl Office Procedures OBC Clinic LOC & Office Proc's Nursing/Assessment Patient Status: Established Patient OB Clinic Nursing Assessment: Medication Reconciliation, Update PMH in EMR and Vital Signs OB Clinic Coordination of Care: Complex Care and Chronic Disease 1-5, Education Complex Pt/Fam, Consent,records obtained, informed consent, Results/Orders obtained and Staff clarify orders Special Needs: Heart tones Established Patient Charge Established Patient Point Assignment: 125 Established Patient Point Charge: EP Level 4 (120-155) Assessment & Plan Diagnosis / Problem List (1) Encounter for care in third trimester of first : Status: Acute Plan Discussed labor precautions. Kick count twice a day. GBS next visit discussed OB precautions Additional Plan Follow Up: 1 Week (obc)
[2025-06-23 13:19] VITALS: BP 110/71; PULSE 94; RESP 18; TEMP 36.7; O2SAT 97; BMI 30.9
== END 2025-06-23 13:40 | disposition home or self-care (01) ==
LOC: HODSOBC 13:11
PROVIDERS: Supervising Provider Advanced Practice Midwife; Visit Provider Advanced Practice Midwife
DX: Z34.03 Encounter for supervision of normal first pregnancy, third trimester (principal); Z3A.34 34 weeks gestation of pregnancy
CPT/HCPCS: 99214; G0463

== ENCOUNTER 2025-07-07 09:59 | Outpatient (AMB) | payer MEDICAID, SELFPAY ==
[2025-07-07 10:39] VITALS: BP 107/70; PULSE 100; RESP 18; TEMP 36.8; O2SAT 98; BMI 30.7
--- NOTE | 2025-07-07 10:39 | OBCLNT_ITS ---
Vital Signs 07/07/25 10:39 Height 1.55 m Height Method Stated Weight 73.652 kg Weight Measurement Method Standing Scale BMI 30.7 BP 107/70 Blood Pressure Source Automatic Cuff Blood Pressure Location Left Upper Arm Position Sitting Respiration 18 Pulse 100 Pulse Source Monitor Temp 98.2 F Temp Source Oral Pulse Oximetry (%) 98 Oxygen Delivery Method Room Air Allergies/Home Meds Allergies & Medications Allergies No Known Allergies Allergy (Verified 07/07/25 10:40) Medication Reconciliation vits no.126-ferrous fum 28 mg iron-folic acid 800 mcg tablet (Classic ) 1 tab PO QDAY 03/04/25 [History Confirmed 07/07/25] Immunizations Immunizations Flu Vaccine in the Last 12 Months: No Flu Vaccine Exclusion Criteria: No Exclusion Criteria Care OB Visit Log OB Flowsheet Initial Weight: Not Recorded Date -?-?-?-?-?-?-?-?-?-?-?-?- EGA Weight BP Alb Glu CTX Pres Fundal ht FHR Mov Dilation Station Effacement Hx Notes Visit Note 01/13/25 -?-?-?-?-?-?-?-?-?-?-?-?- 11w 5d 65.431 kg 122/82 at 11w5d, presenting for initial care. Positive home test on 12/08/24. LMP 10/09/24, dating confirmed by ultrasound performed today. FHT 157 bpm, viable IUP. Denies spotting, cramping, vomiting; mild nausea present. Prior ER visit noted no gestational sac, consistent with early . Labs drawn previously at [facility], results not yet available. Plan: CHERYL based on today?s ultrasound. P renatal labs ordered. Genetic screening and sex testing initiated. Provided US images. Follow-up in 4 weeks. Routine counseling given. 03/04/25 -?-?-?-?-?-?-?-?-?-?-?-?- 18w 6d 66.395 kg 105/69 absent unknown 18 145 active Follow-up on ER visit. Patient was seen at [place] [address] for complaints of ligament pain and discomfort. Ultrasound was done and patient was 18 weeks 2 at that ultrasound. And this confirmed a due date August 01. She had positive yeast in the NuSwab. Otherwise her labs her CMP her CBC UA were all normal. Patient was treated with fluconazole x 1. She was also given Zofran 0.4 x 1 and discharged home. Today patient has continued burning with urination. Reports slight movement. No cramps no bleeding no leaking. New swab plus today. aFP today. 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 I also discussed comfort measures for second trimester discomforts. Patient says she has a follow-up appointment with OB March 10. And she has an [facility] ultrasound scheduled for March. SAB precautions given. And patient return in 4 weeks OB check 03/19/25 -?-?-?-?--?-?-?-?-?-?-?-?- 21w 0d 67.812 kg 110/76 absent unknown 22 140 active - Patient recently visited the emergency room and had a follow-up with Bree, who prescribed creams and tablets for an unspecified condition. - Patient reports completing the [facility] ribed treatment. - She states feeling better with no mo re discomfort and improved discharge. - Patient reports experiencing acid refl ux. - No other complaints or symptoms mentioned. - Attend scheduled ultrasound at [facility] on Saturday - Complete glucose tolerance test (patie nt given test order) - Take omeprazole for acid reflux for e remainder of - Follow up with [facility] for potential repea t ultrasound due to low BFI (6.8) at 27- 28 weeks 04/27/25 -?-?-?-?--?-?-?-?-?-?-?-?- 26w 4d 70.874 kg 111/72 absent unknown 26 145 active No OB complaints. Denies cramping. Denies leaking, denies bleeding. Reports good Discussed third trimester labs. Discussed ultrasound and dates. Reviewed labor precautions. Increase fluids. Return in 3 weeks OB check 05/26/25 -?-?-?-?-?-?-?-?-?-?-?-?- 30w 5d 73.085 kg 117/79 absent unknown 29 135 active Reports good movement. No OB complaints. Denies leaking, bleeding, contractions. Patient agrees to Tdap Tdap today. [facility] ultrasound for growth. Discussed labor precautions. Increase fluids. Continue prenatals. Return in 2 weeks OB 06/23/25 -?-?-?-?-?-?-?-?-?-?-?--?- 34w 5d 74.162 kg 110/71 absent cephalic 34 135 active Reports good movement. Denies lyses leaking, bleeding, contractions GBS next visit. Discussed labor precautions kick count twice a day. Return in a week 07/07/25 -?-?-?-?-?-?-?-?-?-?-?-?- 36w 5d 73.652 kg 107/70 absent cephalic 36 145 active Complains of ligament pain. Reports good.. Denies leaking, bleeding, contractions GBS today. Discussed labor precautions. Kick count twice a day. Increase fluids. Return in a week OB check CHERYL Calculator Estimated Delivery Date Method Current WG Current Estimate 07/30/25 Ultrasound #2 36w 5d Other Estimates 07/16/25 LMP (Certain) 38w 5d 07/30/25 Ultrasound #1 36w 5d 07/30/25 Manual 36w 5d final CHERYL: 07/12 05/06. efw: 52% Notes Visit Date: 06/23/25 Last Updated by: Bree Chand CNM 06/14/25: 32w6. EFW: 32.6%/normal BRIJESH, vtx Visit Date: 04/27/25 Last Updated by: Bree Chand CNM 03/26: 3rd tri labs wnl Office Procedures OBC Clinic LOC & Office Proc's Nursing/Assessment Patient Status: Established Patient OB Clinic Nursing Assessment: Medication Reconciliation, Update PMH in EMR and Vital Signs OB Clinic Coordination of Care: Consent,records obtained, informed consent, Education Simp Pt/Fam, Lab and Imaging orders, Results/Orders obtained and Staff clarify orders Special Needs: Heart tones Established Patient Charge Established Patient Point Assignment: 110 Established Patient Point Charge: EP Level 3 (80-115) Assessment & Plan Diagnosis / Problem List (1) Encounter for care in third trimester of first : Status: Acute Plan GBS today. Discussed labor precautions. Kick count twice a day. Discussed danger signs and symptoms and ER precautions return a week OB check Additional Plan Follow Up: 1 Week (obc)
== END 2025-07-07 10:54 | disposition home or self-care (01) ==
LOC: HODSOBC 09:59
PROVIDERS: Supervising Provider Advanced Practice Midwife; Visit Provider Advanced Practice Midwife
DX: Z34.03 Encounter for supervision of normal first pregnancy, third trimester (principal); Z3A.36 36 weeks gestation of pregnancy; Z36.85 Encounter for antenatal screening for Streptococcus B
CPT/HCPCS: 99213; G0463

== ENCOUNTER 2025-07-14 14:25 | Outpatient (AMB) | payer MEDICAID, SELFPAY ==
[2025-07-14 14:39] VITALS: BP 117/79; PULSE 96; RESP 18; TEMP 36.4; O2SAT 98; BMI 31.1
--- NOTE | 2025-07-14 14:39 | OBCLNT_ITS ---
Vital Signs 07/14/25 14:39 Height 1.55 m Height Method Stated Weight 74.899 kg Weight Measurement Method Standing Scale BMI 31.1 BP 117/79 Blood Pressure Source Automatic Cuff Blood Pressure Location Left Upper Arm Position Sitting Respiration 18 Pulse 96 Pulse Source Monitor Temp 97.5 F Temp Source Oral Pulse Oximetry (%) 98 Oxygen Delivery Method Room Air Allergies/Home Meds Allergies & Medications Allergies No Known Allergies Allergy (Verified 07/14/25 14:44) Medication Reconciliation vits no.126-ferrous fum 28 mg iron-folic acid 800 mcg tablet (Classic ) 1 tab PO QDAY 03/04/25 [History Confirmed 07/14/25] Immunizations Immunizations Flu Vaccine in the Last 12 Months: Yes Flu Vaccine Exclusion Criteria: Already Received Care OB Visit Log OB Flowsheet Initial Weight: Not Recorded Date -?-?-?-?-?-?-?-?-?-?-?-?- EGA Weight BP Alb Glu CTX Pres Fundal ht FHR Mov Dilation Station Effacement Hx Notes Visit Note 01/13/25 -?-?-?-?-?-?-?-?-?-?-?-?- 11w 5d 65.431 kg 122/82 at 11w5d, presenting for initial care. Positive home test on 12/08/24. LMP 10/09/24, dating confirmed by ultrasound performed today. FHT 157 bpm, viable IUP. Denies spotting, cramping, vomiting; mild nausea present. Prior ER visit noted no gestational sac, consistent with early . Labs drawn previously at [facility], results not yet available. Plan: CHERYL based on today?s ultrasound. P renatal labs ordered. Genetic screening and sex testing initiated. Provided US images. Follow-up in 4 weeks. Routine counseling given. 03/04/25 -?-?-?-?-?-?-?-?-?-?-?-?- 18w 6d 66.395 kg 105/69 absent unknown 18 145 active Follow-up on ER visit. Patient was seen at [place] [address] for complaints of ligament pain and discomfort. Ultrasound was done and patient was 18 weeks 2 at that ultrasound. And this confirmed a due date August 01. She had positive yeast in the NuSwab. Otherwise her labs her CMP her CBC UA were all normal. Patient was treated with fluconazole x 1. She was also given Zofran 0.4 x 1 and discharged home. Today patient has continued burning with urination. Reports slight movement. No cramps no bleeding no leaking. New swab plus today. aFP today. 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 I also discussed comfort measures for second trimester discomforts. Patient says she has a follow-up appointment with OB March 10. And she has an [facility] ultrasound scheduled for March. SAB precautions given. And patient return in 4 weeks OB check 03/19/25 -?-?-?-?-?-?-?-?-?--?-?-?- 21w 0d 67.812 kg 110/76 absent unknown 22 140 active - Patient recently visited the emergency room and had a follow-up with Bree, who prescribed creams and tablets for an unspecified condition. - Patient reports completing the [facility] ribed treatment. - She states feeling better with no mo re discomfort and improved discharge. - Patient reports experiencing acid refl ux. - No other complaints or symptoms mentioned. - Attend scheduled ultrasound at [facility] on Saturday - Complete glucose tolerance test (patie nt given test order) - Take omeprazole for acid reflux for e remainder of - Follow up with [facility] for potential repea t ultrasound due to low BFI (6.8) at 27- 28 weeks 04/27/25 -?-?-?-?-?-?-?-?-?--?-?-?- 26w 4d 70.874 kg 111/72 absent unknown 26 145 active No OB complaints. Denies cramping. Denies leaking, denies bleeding. Reports good Discussed third trimester labs. Discussed ultrasound and dates. Reviewed labor precautions. Increase fluids. Return in 3 weeks OB check 05/26/25 -?-?-?-?-?-?-?-?-?-?-?-?- 30w 5d 73.085 kg 117/79 absent unknown 29 135 active Reports good movement. No OB complaints. Denies leaking, bleeding, contractions. Patient agrees to Tdap Tdap today. [facility] ultrasound for growth. Discussed labor precautions. Increase fluids. Continue prenatals. Return in 2 weeks OB 06/23/25 -?-?-?-?-?-?-?-?-?-?-?-?- 34w 5d 74.162 kg 110/71 absent cephalic 34 135 active Reports good movement. Denies lyses leaking, bleeding, contractions GBS next visit. Discussed labor precautions kick count twice a day. Return in a week 07/07/25 -?-?-?-?-?-?-?-?-?-?-?-?- 36w 5d 73.652 kg 107/70 absent cephalic 36 145 active Complains of ligament pain. Reports good.. Denies leaking, bleeding, contractions GBS today. Discussed labor precautions. Kick count twice a day. Increase fluids. Return in a week OB check 07/14/25 -?-?-?-?-?-?-?-?-?-?-?-?- 37w 5d 74.899 kg 117/79 occasional cephalic 37 145 active Fetus active. Occasional contraction. Denies leaking or bleeding Discussed kick count. Discussed labor precautions. Reviewed comfort measures for early labor return a week OB check CHERYL Calculator Estimated Delivery Date Method Current WG Current Estimate 07/30/25 Ultrasound #1 37w 5d Other Estimates 07/16/25 LMP (Certain) 39w 5d 07/30/25 Ultrasound #2 37w 5d 07/30/25 Manual 37w 5d final CHERYL: 07/12 05/06. efw: 52% Notes Visit Date: 07/14/25 Last Updated by: Bree Chand CNM GBS- Visit Date: 06/23/25 Last Updated by: Bree Chand CNM 06/14/25: 32w6. EFW: 32.6%/normal BRIJESH, vtx Visit Date: 04/27/25 Last Updated by: Bree Chand CNM 03/26: 3rd tri labs wnl Office Procedures OBC Clinic LOC & Office Proc's Nursing/Assessment Patient Status: Established Patient OB Clinic Nursing Assessment: Medication Reconciliation, Update PMH in EMR and Vital Signs OB Clinic Coordination of Care: Complex Care and Chronic Disease 1-5, Consent,records obtained, informed consent, Education Simp Pt/Fam, 1 Ins Authorization, Lab and Imaging orders, Results/Orders obtained and Staff clarify orders Special Needs: Heart tones Established Patient Charge Established Patient Point Assignment: 150 Established Patient Point Charge: EP Level 4 (120-155) Assessment & Plan Diagnosis / Problem List (1) Encounter for care in third trimester of first : Status: Acute Plan Discussed labor precautions. Kick count twice a day. Comfort measures for early labor. Discussed signs and symptoms of labor and ER precautions return week OB check Additional Plan Follow Up: 1 Week (obc)
== END 2025-07-14 15:11 | disposition home or self-care (01) ==
LOC: HODSOBC 14:25
PROVIDERS: Supervising Provider Advanced Practice Midwife; Visit Provider Advanced Practice Midwife
DX: Z34.03 Encounter for supervision of normal first pregnancy, third trimester (principal); Z3A.37 37 weeks gestation of pregnancy
CPT/HCPCS: 99214; G0463

== ENCOUNTER 2025-07-22 08:53 | Outpatient (AMB) | payer MEDICAID, SELFPAY ==
--- NOTE | 2025-07-22 09:03 | OBCLNT_ITS ---
Allergies/Home Meds Allergies & Medications Allergies No Known Allergies Allergy (Verified 07/22/25 09:08) Medication Reconciliation vits no.126-ferrous fum 28 mg iron-folic acid 800 mcg tablet (Classic ) 1 tab PO QDAY 03/04/25 [History Confirmed 07/22/25] Immunizations Immunizations Flu Vaccine in the Last 12 Months: Yes Flu Vaccine Exclusion Criteria: Already Received Care OB Visit Log OB Flowsheet Initial Weight: Not Recorded Date -?-?-?-?-?-?-?-?-?-?-?-?- EGA Weight BP Alb Glu CTX Pres Fundal ht FHR Mov Dilation Station Effacement Hx Notes Visit Note 01/13/25 -?-?-?-?-?-?-?-?-?-?-?-?- 11w 5d 65.431 kg 122/82 at 11w5d, presenting for initial care. Positive home test on 12/08/24. LMP 10/09/24, dating confirmed by ultrasound performed today. FHT 157 bpm, viable IUP. Denies spotting, cramping, vomiting; mild nausea present. Prior ER visit noted no gestational sac, consistent with early . Labs drawn previously at [facility], results not yet available. Plan: CHERYL based on today?s ultrasound. P renatal labs ordered. Genetic screening and sex testing initiated. Provided US images. Follow-up in 4 weeks. Quang pruitt counseling given. 03/04/25 -?-?-?-?-?-?-?-?-?-?-?-?- 18w 6d 66.395 kg 105/69 absent unknown 18 145 active Follow-up on ER visit. Patient was seen at [place] [id number] for complaints of ligament pain and discomfort. Ultrasound was done and patient was 18 weeks 2 at that ultrasound. And this confirmed a due date August 01. She had positive yeast in the NuSwab. Otherwise her labs her CMP her CBC UA were all normal. Patient was treated with fluconazole x 1. She was also given Zofran 0.4 x 1 and discharged home. Today patient has continued burning with urination. Reports slight movement. No cramps no bleeding no leaking. New swab plus today. aFP today. 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 I also discussed comfort measures for second trimester discomforts. Patient says she has a follow-up appointment with OB March 10. And she has an [facility] ultrasound scheduled for March. SAB precautions given. And patient return in 4 weeks OB check 03/19/25 -?-?-?-?-?-?-?-?-?-?-?-?- 21w 0d 67.812 kg 110/76 absent unknown 22 140 active - Patient recently visited the emergency room and had a follow-up with Bree, who prescribed creams and tablets for an unspecified condition. - Patient reports completing the presc ribed treatment. - She states feeling better with no mo re discomfort and improved discharge. - Patient reports experiencing acid refl ux. - No other complaints or symptoms mentioned. - Attend scheduled ultrasound at [facility] on Saturday - Complete glucose tolerance test (patie nt given test order) - Take omeprazole for acid reflux for e remainder of - Follow up with [facility] for potential repea t ultrasound due to low BFI (6.8) at 27- 28 weeks 04/27/25 -?-?-?-?-?-?-?-?-?-?-?-?- 26w 4d 70.874 kg 111/72 absent unknown 26 145 active No OB complaints. Denies cramping. Denies leaking, denies bleeding. Reports good Discussed third trimester labs. Discussed ultrasound and dates. Reviewed labor precautions. Increase fluids. Return in 3 weeks OB check 05/26/25 -?-?-?-?-?-?-?-?-?-?-?-?- 30w 5d 73.085 kg 117/79 absent unknown 29 135 active Reports good movement. No OB complaints. Denies leaking, bleeding, contractions. Patient agrees to Tdap Tdap today. [facility] ultrasound for growth. Discussed labor precautions. Increase fluids. Continue prenatals. Return in 2 weeks OB 06/23/25 -?-?-?-?-?-?-?-?-?-?-?-?- 34w 5d 74.162 kg 110/71 absent cephalic 34 135 active Reports good movement. Denies lyses leaking, bleeding, contractions GBS next visit. Discussed labor precautions kick count twice a day. Return in a week 07/07/25 -?-?-?-?-?-?-?-?-?-?-?-?- 36w 5d 73.652 kg 107/70 absent cephalic 36 145 active Complains of ligament pain. Reports good.. Denies leaking, bleeding, contractions GBS today. Discussed labor precautions. Kick count twice a day. Increase fluids. Return in a week OB check 07/14/25 -?-?-?-?-?-?-?-?-?-?-?-?- 37w 5d 74.899 kg 117/79 occasional cephalic 37 145 active Fetus active. Occasional contraction. Denies leaking or bleeding Discussed kick count. Discussed labor precautions. Reviewed comfort measures for early labor return a week OB check 07/22/25 -?-?-?-?-?-?-?-?-?-?-?-?- 38w 6d occasional cephalic 36 145 active Fetus active. Occasional contraction and pressure. Denies leaking, bleeding Discussed kick count twice a day. Reviewed signs and symptoms of labor and ER precautions. Return in a week OB check CHERYL Calculator Estimated Delivery Date Method Current WG Current Estimate 07/30/25 Ultrasound #1 38w 6d Other Estimates 07/16/25 LMP (Certain) 40w 6d 07/30/25 Ultrasound #2 38w 6d 07/30/25 Manual 38w 6d final CHERYL: 07/12 05/06. efw: 52% Notes Visit Date: 07/14/25 Last Updated by: Bree Chand CNM GBS- Visit Date: 06/23/25 Last Updated by: Bree Chand CNM 06/14/25: 32w6. EFW: 32.6%/normal BRIJESH, vtx Visit Date: 04/27/25 Last Updated by: Bree Chand CNM 03/26: 3rd tri labs wnl Office Procedures OBC Clinic LOC & Office Proc's Nursing/Assessment Patient Status: Established Patient OB Clinic Nursing Assessment: Medication Reconciliation, Update PMH in EMR and Vital Signs OB Clinic Coordination of Care: Consent,records obtained, informed consent, Education Simp Pt/Fam, Results/Orders obtained and Staff clarify orders Special Needs: Heart tones Established Patient Charge Established Patient Point Assignment: 95 Established Patient Point Charge: EP Level 3 (80-115) Assessment & Plan Diagnosis / Problem List (1) Encounter for care in third trimester of first : Status: Acute Plan Reviewed labor precautions. Kick count twice a day. Increase fluids. Continue prenatals. Return in 1 week OB check Additional Plan Follow Up: 1 Week (obc)
== END 2025-07-22 09:39 | disposition home or self-care (01) ==
LOC: HODSOBC 08:53
PROVIDERS: Supervising Provider Advanced Practice Midwife; Visit Provider Advanced Practice Midwife
DX: Z34.03 Encounter for supervision of normal first pregnancy, third trimester (principal); Z3A.38 38 weeks gestation of pregnancy
CPT/HCPCS: 99213; G0463

== ENCOUNTER 2025-07-26 17:18 | Inpatient (IN) | payer MEDICAID, SELFPAY ==
[2025-07-26] VITALS (9 sets, daily range): BP systolic 104–127; BP diastolic 57–82; PULSE 69–81; RESP 18–99; TEMP 36.7; BMI 30.5
[2025-07-26 18:46] LABS: Swb Mxed in Solvent 1 min? Yes
[2025-07-26 18:47] LABS: ROM Swab Mixed By: GARCN1; Rupture of Fetal Membranes Negative (Negative)
--- NOTE | 2025-07-26 19:02 | XR_ITS ---
Examination: Complete OB ultrasound greater than 14 weeks Date and time of exam: July 26, 2025, 1917 hours INDICATIONS: Onset pelvic contraction and leaking amniotic fluid today Findings: Viable intrauterine single fetus with single amniotic sac presentation cephalic Cardiac motion 145 bpm Placenta anterior grade 2 Umbilical cord insertion 3 vessel seen Amniotic fluid index 1.9 cm spine posterior Ovaries obscured by bowel gas. Composite estimated gestational age based on BPD, head circumference, abdominal circumference, femur length is 34 weeks 6 days Estimated weight 2568.8 g. Survey of intracranial anatomy, spinal anatomy, abdominal anatomy, four-chamber heart performed with no abnormalities identified. Impression: Viable intrauterine gestation cephalic presentation Estimated gestational age 34 weeks 6 days Amniotic fluid index 1.9 cm.
--- NOTE | 2025-07-26 19:02 | XR_ITS ---
Examination: Biophysical profile, ultrasound Date and time of exam: July 26, 2025, 1930 hours INDICATIONS: Pelvic contractions and amniotic fluid leaking today, variable NST Technique: Multiple transabdominal sonographic images of the pelvis abdomen obtained. Attention is directed to the breathing movement, gross body movement, amniotic fluid volume and tone. Findings: Amniotic fluid index 4.1 cm Total biophysical profile is 6 of 8. breathing movement is 2. Gross body movement is 2. tone is 2. Qualitative amniotic fluid volume is 0 Impression: Biophysical profile is 6 of 8.
[2025-07-26] MEDS: RINGERS LACTATED 1000 ML 1,000 ML 100 ML IV (22:10)
[2025-07-26 22:53] LABS: Basophils # (Auto) 0.0 Thou/mm3 (0.0-0.2); Basophils % (Auto) 0 % (0-2.5); Eosinophils # (Auto) 0.0 Thou/mm3 (0.0-0.5); Eosinophils % (Auto) 0 % (0-10); Hematocrit 40.4 % (36.0-46.0); Hemoglobin 14.2 g/dL (12.0-16.0); Immature Granulocytes Auto 0.07 Thou/mm3 (0.00-0.00); Lymphocytes # (Auto) 2.0 Thou/mm3 (1.0-4.8); Lymphocytes % (Auto) 17 % (10-50); Mean Corpuscular HGB Conc 35.1 g/dl (31.0-37.0); Mean Corpuscular Hemoglobin 30.1 pg (25.0-35.0); Mean Corpuscular Volume 86 fL (80-100); Monocytes # (Auto) 0.9 Thou/mm3 (0.0-0.8); Monocytes % (Auto) 8 % (0-12); Neutrophils # (Auto) 8.7 Thou/mm3 (1.8-7.7); Neutrophils % (Auto) 74 % (37-80); Nucleated Red Blood Cell # 0.00 Thou/mm3 (0.00-0.00); Nucleated Red Blood Cell % 0 /100 WBC (0); Platelet Count 224 Thou/mm3 (140-440); RDW Standard Deviation 40.5 fL (36.4-46.3); Red Blood Count 4.71 Miln/mm3 (4.00-5.20); White Blood Count 11.7 Thou/mm3 (3.6-11.0)
[2025-07-26 23:29] LABS: Syphilis Nonreactive (Nonreactive)
[2025-07-27] VITALS (96 sets, daily range): BP systolic 89–173; BP diastolic 51–83; PULSE 62–136; RESP 13–20; TEMP 36.4–37.2; O2SAT 93–100
[2025-07-27] MEDS: RINGERS LACTATED 1000 ML 1,000 ML 100 ML IV ×2 (01:19→22:33)
--- NOTE | 2025-07-27 03:28 | PD.LDHP ---
Documentation for date of: 07/27/25 OB Labor/Induct. HPI History of Present Illness Chief complaint: labor/leaking : 1 Para: 0 Term pregnancies: 0 pregnancies: 0 Living children: 0 History of Abortions: Spontaneous and Elective: 0 History of Vaginal deliveries: 0 History of sections: No History of : No Date of last menstrual period: 10/09/24 CHERYL: 07/30/25 Gestational Age (weeks): 39 Gestational Age (days): 4 Gestational age based on last menstrual period: 41 History of present illness: 25-year-old 1 para 0 for complaints of contractions and leaking fluid. Reports movement. Patient was a transferred to [facility] OB clinic from [facility]. She had records. Her last. Was October 09, 2024. This gives due date July 16, 2025. Patient then had an 11-week ultrasound to change EDC to 07/30/2025. Patient then had a 21-week that also confirmed dates and put the baby growing in the 53rd percentile amnio sure today was negative for fluid. However BRIJESH was 1.9 and she had a BPP of 6 out of 8 so patient was kept for observation. And then progressed to 4 cm so admitted. Denies social habits. Denies surgery. Denies chronic illness. Patient is B+, antibody screen negative, RPR nonreactive, rubella immune, hepatitis B negative, hep C negative, HIV negative, GC and Chlamydia were negative. Her 1 hour was normal. Her A1c was 4.9. She had a cystic fibrosis screen that was negative and drug screen was negative. GBS negative History of Present Dating criteria: LMP confirmed by 1st trimester US Adequate Care: Yes Ultrasounds: normal 1st trimester US and normal mid trimester US Obstetrical complications: none Medical complications: none Labs Labs: Positive: Rubella Titre, Negative: RPR, Hepatitis B, HIV, Chlamydia, Gonorrhea and Group Beta Strep and Unknown: Herpes Type 1, Herpes Type 2 and Covid-19 Review of Systems Review of Systems Systems Reviewed: All systems reviewed, normal except as documented Past Medical History Surgical History SURGICAL: Negative Section Meds Home Medications and Allergies Home Medications ?Medication ?Instructions ?Recorded ?Confirmed ?Type vits no.126-ferrous fum 1 tab PO QDAY 07/24/25 12/15/25 History 28 mg iron-folic acid 800 mcg tablet (Classic ) Allergies Allergy/AdvReac Type Severity Reaction Status Date / Time No Known Allergies Allergy Verified 07/26/25 22:24 OB Exam Physical Exam Vital signs: Temp Pulse Resp BP Pulse Ox 98.6 F 75 18 115/60 100 07/27/25 00:37 07/27/25 03:04 07/26/25 18:13 07/27/25 03:04 07/27/25 03:27 Narrative: EFW 2568. Exam on admission was 80%, 4, -3. Vertex. Bag water was palpated. Contractions 3-4. heart rate category 1 overall but patient did have occasional variable. Normal heart rate and rhythm. Lungs clear no wheezes. Gravid abdomen. Gynecoid pelvis. Detailed Labor and Delivery Exam Dilation (cm): 4 Effacement (%): 80 Cervix position: mid station: -3 Consistency: medium Presentation: Vertex Cervical ripeness score: 8 Membranes: intact and ruptured (?) Baseline heart rate: 140 monitor accelerations: 15x15 monitor decelerations: Variable assisted variability: Moderate (11-25) Contraction frequency (min): 3-4 Contraction duration (sec): 30 Tachysystole: No Contraction intensity: Moderate OB Results Labs 07/26/25 22:10 Labs: Short CBC 07/26/25 Range/Units 22:10 WBC 11.7 H (3.6-11.0) Thou/mm3 Hgb 14.2 (12.0-16.0) g/dL Hct 40.4 (36.0-46.0) % Plt Count 224 (140-440) Thou/mm3 OB Assessment & Plan Assessment and Plan (1) Normal labor and delivery: Status: Acute Additional Plan Induction method: none Plan: anticipate NVD and consult MD santiago
--- NOTE | 2025-07-27 04:17 | ESPR_ITS ---
Documentation for date of: 07/27/25 OB Labor Progress Note Pain Control Pain control: epidural Pelvic Exam Dilation (cm): 5.5 Effacement (%): 80 station: -2 Amniotic membrane status: Ruptured Comments: clear Contractions Monitor mode: Internal Contraction frequency: 2-6 Contraction duration: 40 Contraction pattern: Coupling Contraction phase: Resting Contraction intensity: Moderate Status status: Category ll Comments: variable,prolonged Assessment and Plan Assessment: active labor Plan OB labor note: continuous present management CNM Management MD Consulted (describe details below): Yes Details of MD consultation: continue expectant management, amnioinfusion History of Present Illness HPI 25-year-old 1 para 0 for complaints of contractions and leaking fluid. Reports movement. Patient was a transferred to [facility] OB clinic from [facility]. She had records. Her last. Was October 09, 2024. This gives due date July 16, 2025. Patient then had an 11-week ultrasound to change EDC to 07/30/2025. Patient then had a 21-week that also confirmed dates and put the baby growing in the 53rd percentile amnio sure today was negative for fluid. However BRIJESH was 1.9 and she had a BPP of 6 out of 8 so patient was kept for observation. And then progressed to 4 cm so admitted. Denies social habits. Denies surgery. Denies chronic illness. Patient is B+, antibody screen negative, RPR nonreactive, rubella immune, hepatitis B negative, hep C negative, HIV negative, GC and Chlamydia were negative. Her 1 hour was normal. Her A1c was 4.9. She had a cystic fibrosis screen that was negative and drug screen was negative. GBS negative
[2025-07-27] MEDS: ceFAZolin/D5W 2 GM IV 2 GM/100 ML BAG IV (04:50)
[2025-07-27] MEDS: FAMOTIDINE INJ 10 MG/ML VIAL 2 ML 20 MG (04:50)
--- NOTE | 2025-07-27 04:53 | ESPR_ITS ---
Documentation for date of: 07/27/25 OB Labor Progress Note Pelvic Exam Dilation (cm): 5.5 Effacement (%): 80 station: -2 Amniotic membrane status: Ruptured Contractions Monitor mode: Internal Contraction frequency: 2-6 Contraction pattern: Coupling Contraction phase: Resting Contraction intensity: Moderate Status status: Category ll Assessment and Plan Comments: I was called by L&D regarding concern for Melba's FHRT. CLAYTON Chand had performed AROM and placed IUPC/FSE since there were some small recurrent variable decels with intention for amnioinfusion. When they called, there was 200cc infused so far and patient was having deep recurrent variable decels. I watched the FHRT for several minutes during which time variability was maintained and tracing looked to be improving a bit, but then there was a deep decel to the 80's that took a few minutes to fully recover. It was at that time that I asked the team to ready the patient and OR for section and I immediately went to bedside. Upon arrival, FHRT is back to baseline again with normal variability but will proceed with given patient is primip at 5cm. -Counseled/consented re: section. Discussed all r/b/a to include: bleeding (possible need for blood transfusion), infection (subcutaneous, deeper layers or uterine with possible need for prolonged admission or re-admission for IV antibiotics, I&D with wound packing, etc), injury to nearby structures such as bladder, bowel, ureters, blood vessels, nerves with possible need for re- operation, pain, injury to baby, hysterectomy, DVT/PE, . Answered all questions to patient and their support person's satisfaction. -IV abx ppx: ancef 2g IV -Nursing and anesthesia team aware of plan for section. Will proceed to OR expeditiously when team is ready
--- NOTE | 2025-07-27 05:57 | ESOP_ITS ---
Operative Note - ORGANIZATIONAL DEVELOPMENT MANAGER Procedure Date of procedure: 07/27/25 Procedure Performed: Primary Low Transverse Section Indication: Melba is a 25yo with SIUP at 39w4d presenting in early labor, 3cm. She felt loss of fluid, so amnisure was done which was negative. However, ultrasound showed BRIJESH 1cm. She progressed in labor to 5cm, but experienced Cat II FHRT with recurrent deep FHR decels. Amnioinfusion was attempted but unsuccessful at resolving decels. Pre-Op diagnosis: SIUP at 39w4d Cat II FHRT remote from delivery (recurrent deep variable FHR decels) Active labor at term SROM vs oligohydramnios, BRIJESH 1cm on admission with negative amnisure Current BMI 30.5 Post-Op diagnosis: SIUP at 39w4d Cat II FHRT remote from delivery (recurrent deep variable FHR decels) Active labor at term SROM vs oligohydramnios, BRIJESH 1cm on admission with negative amnisure Current BMI 30.5 Anesthesia type: Epidural Fluids: crystalloid Fluid amount (mL): 2,000 Urine output (mL): 150 Specimen: other (placenta and cord not sent to pathology) Estimated blood loss (ml): 550 Findings: Clear fluid. Female in OP presentation. Apgars 8/9, weight 2990g. TOB 05:12 on 07/27/25. Brief vacuum assistance needed for delivery- 1 short pull, no pop off. Normal appearing uterus, fallopian tubes and ovaries. Complications: none Narrative: After obtaining informed consent, the patient was taken to the operating room. There was reassuring heart rate tracing prior. Epidural anesthesia was in place as well as del valle catheter. Bilateral sequential compression devices were placed. She was then prepped and draped in the normal sterile fashion in the dorsal supine position with left lateral tilt. A timeout was performed to confirm patient name, date of , procedure and indication. The team was in agreement. Epidural anesthesia was found to be adequate using an Allis clamp. Anceph 2g IV x1 were given for prophylaxis. A Pfannenstiel skin incision was then made with the scalpel and carried through to the underlying layer of fascia. The fascia was incised in the midine and the incision was extended laterally bluntly. The superior and inferior aspects of the fascial incision were dissected off the underlying rectus muscles bluntly. The peritoneum was entered digitally and the rectus muscles were then in the midline. The peritoneal incision was then extended superiorly and inferiorly with good visualization of the bladder. An Trey retractor was placed. The lower uterine segment was scored in a transverse fashion with the scalpel. The uterus was then entered bluntly and the incision was extended with traction with clear amniotic fluid noted. The 's head was elevated to the level of the incision. Fundal pressure was applied, but head did not immediately deliver (initially OP, but OT at the incision), so MightyVac was applied at the flexion point of the head and pumped up to the green zone- one brief pull performed and head immediately delivered. No pop off. Suction released. The anterior shoulder, posterior shoulder and corpus were delivered without difficulty. The nose and mouth were suctioned with bulb suction and cord was clamped x2 and cut. Infant was vigorous. The infant was handed off to the awaiting nursing team. Cord blood obtained for typing. The placenta was then removed with uterine massage and cord traction. The uterus was exteriorized and cleared of all clot and debris. The uterine incision was repaired with 0-monocryl suture in a running locking fashion. A second layer of O-monocryl was used to closed the hysterotomy incision in an imbricating fashion. The uterine incision was inspected and hemostasis was noted. In addition to standard IV pitocin, patient received TXA 1g IV x1. Good uterine tone was achieved early on and maintained. The posterior cul-de-sac was suctioned and the uterus returned to the abdomen. Trey retractor was removed. The peritoneum was closed using a 3-0 vicryl suture in running fashion. The rectus muscles were inspected and small areas of oozing were cauterized. The fascia was reapproximated with 0-Vicryl suture in a running fashion. The subcutaneous tissue was then copiously irrigated. Angelito's fascia was reapproximated in 2 layers using 3-0 vicryl suture in a running fashion. The skin was reapproximated with 4-0 monocryl suture in running subcuticular fashion. The incision was cleaned with a wet lap and dried with a dry lap. Cjmemznfs-trearecsmrm-gaix bandage was applied overlying the incision and activated according to puff ironer instructions. Fundus was firm at the umbilicus. Sponge, lap and needle counts were correct x2. The procedure was without complications and the patient tolerated the procedure well. She was taken to recover further on Labor and Delivery, in stable condition. Surgical staff Operation Date: 07/27/25 05:15 Case Staff CONVERTING TECHNICIAN: Luis Gastelum RN First Assistant: Lb Palomares Diagnosis Discharge Diagnosis (1) delivery delivered: Status: Acute (2) Category II heart rate tracing during labor and delivery: Status: Acute Problem List Completed Was Problem List Reviewed/Reconciled?: Yes
[2025-07-27] MEDS: OXYTOCIN in NS 20 units 20 UNIT/1,000 ML BAG 125 UNIT IV (13:28)
[2025-07-27 17:23] LABS: Basophils # (Auto) 0.0 Thou/mm3 (0.0-0.2); Basophils % (Auto) 0 % (0-2.5); Eosinophils # (Auto) 0.0 Thou/mm3 (0.0-0.5); Eosinophils % (Auto) 0 % (0-10); Hematocrit 31.7 % (36.0-46.0); Hemoglobin 11.0 g/dL (12.0-16.0); Immature Granulocytes Auto 0.06 Thou/mm3 (0.00-0.00); Lymphocytes # (Auto) 0.9 Thou/mm3 (1.0-4.8); Lymphocytes % (Auto) 7 % (10-50); Mean Corpuscular HGB Conc 34.7 g/dl (31.0-37.0); Mean Corpuscular Hemoglobin 30.1 pg (25.0-35.0); Mean Corpuscular Volume 87 fL (80-100); Monocytes # (Auto) 0.9 Thou/mm3 (0.0-0.8); Monocytes % (Auto) 7 % (0-12); Neutrophils # (Auto) 12.0 Thou/mm3 (1.8-7.7); Neutrophils % (Auto) 86 % (37-80); Nucleated Red Blood Cell # 0.00 Thou/mm3 (0.00-0.00); Nucleated Red Blood Cell % 0 /100 WBC (0); Platelet Count 207 Thou/mm3 (140-440); RDW Standard Deviation 41.1 fL (36.4-46.3); Red Blood Count 3.66 Miln/mm3 (4.00-5.20); White Blood Count 13.9 Thou/mm3 (3.6-11.0)
[2025-07-27] MEDS: KETOROLAC INJ 30 MG/ML VIAL IVP (17:27)
[2025-07-27] MEDS: DOCUSATE SOD 100 MG CAPSULE PO (21:03)
[2025-07-28 00:15] VITALS: BP 115/77; PULSE 95; RESP 18; TEMP 36.7; O2SAT 99
[2025-07-28] MEDS: KETOROLAC INJ 30 MG/ML VIAL IVP (00:16)
[2025-07-28] MEDS: IBUPROFEN TAB 400 MG TABLET 800 MG PO ×3 (06:12→22:02)
[2025-07-28] MEDS: DOCUSATE SOD 100 MG CAPSULE PO ×2 (07:59→22:02)
[2025-07-28] MEDS: PRENATAL VITAMIN/FE FUM/FA TABLET 1 TAB PO (07:59)
[2025-07-28 08:00] VITALS: BP 104/72; PULSE 78; RESP 18; TEMP 36.7; O2SAT 99
[2025-07-28 12:00] VITALS: BP 112/64; PULSE 91; RESP 18; TEMP 36.9; O2SAT 97
--- NOTE | 2025-07-28 13:15 | PD.LDPPPRG ---
Exam Vital Signs Temp Pulse Resp BP Pulse Ox O2 Del Method 98.0 F 78 18 104/72 99 Room Air 07/28/25 08:00 07/28/25 08:00 07/28/25 08:00 07/28/25 08:00 07/28/25 08:00 07/28/25 08:00 Narrative Exam alert x3 chest clear CVS RRR NO thyromegaly Uterus is nontender Uterus is firm/ appropriate size Just below the umbilicus Bowel sounds present Abdomen soft no hernias noted/no CVAT Incision CDI No drainage Appropriately tender No calf tenderness Edema mild Objective Labs 07/27/25 17:01 Labs: Laboratory Results - last 24 hr 07/27/25 17:01 WBC 13.9 H RBC 3.66 L Hgb 11.0 L D Hct 31.7 L MCV 87 MCH 30.1 MCHC 34.7 RDW Std Deviation 41.1 Plt Count 207 Neut % (Auto) 86 H Lymph % (Auto) 7 L [place] % (Auto) 7 Eos % (Auto) 0 Baso % (Auto) 0 Neut # (Auto) 12.0 H Lymph # (Auto) 0.9 L [place] # (Auto) 0.9 H Eos # (Auto) 0.0 Baso # (Auto) 0.0 Immature Gran # (Auto) 0.06 H Absolute Nucleated RBC 0.00 Immature Gran % 0 Nucleated RBC % 0 Assessment & Plan Problem List (1) delivery delivered: Status: Acute (2) Category II heart rate tracing during labor and delivery: Status: Acute Assessment and plan: s/p Primary LTCS on 07/27/2025 for cat 2 FHRate and remote from delivery/ Hb 14.2 to 11 today , POD #1 / doing well / Likely discharge in am Melba is a 25yo with SIUP at 39w4d presenting in early labor, 3cm. She felt loss of fluid, so amnisure was done which was negative. However, ultrasound showed BRIJESH 1cm. She progressed in labor to 5cm, but experienced Cat II FHRT with recurrent deep FHR decels. Amnioinfusion was attempted but unsuccessful at resolving decels. Pre-Op diagnosis: SIUP at 39w4d Cat II FHRT remote from delivery (recurrent deep variable FHR decels) Active labor at term SROM vs oligohydramnios, BRIJESH 1cm on admission with negative amniosure Current BMI 30.5 Assessment Comment Assessment comment: Routine post op care Time Spent With Patient Time: Total time spent is greater than 50% in coordination of care (as documented) at patient's floor/unit and/or counseling patient:
[2025-07-28 23:47] VITALS: BP 107/71; PULSE 71; RESP 17; TEMP 36.4
[2025-07-29 05:35] VITALS: BP 124/82; PULSE 80; RESP 16; TEMP 36.7; O2SAT 98
[2025-07-29 08:00] VITALS: BP 113/79; PULSE 88; RESP 20; TEMP 36.8; O2SAT 98
[2025-07-29] MEDS: DOCUSATE SOD 100 MG CAPSULE PO (08:23)
--- NOTE | 2025-07-29 08:33 | PD.LDPPPRG ---
Subjective Subjective Interval history: Delivery type: Patient doing well this morning. No acute complaints. Ambulating, tolerating p.o., and voiding without difficulty. HTN/Pre-E screen negative: No CP, SOB, TADEO, visual changes, RUQ pain. : Yes Lochia: diminishing Bowel: Flatus + / BM + UOP: Patient had transient urinary retention but now voiding Exam Vital Signs Temp Pulse Resp BP Pulse Ox O2 Del Method 98.0 F 80 16 124/82 98 Room Air 07/29/25 05:35 07/29/25 05:35 07/29/25 05:35 07/29/25 05:35 07/29/25 05:35 07/29/25 05:35 Constitutional Constitutional: no acute distress Routine HEENT Exam Head: Present normocephalic and atraumatic Eye: Present EOMI and PERRL ENT: Present mucous membranes moist Routine Neck Exam Neck: Present supple and trachea midline Routine Respiratory Exam Respiratory: Present chest non-tender, lungs clear, normal breath sounds and no resp distress Routine Cardiovascular Exam Cardiovascular: Present RRR Routine Abdominal Exam Abdominal: Present soft and normoactive bowel sounds Routine Extremities Exam Extremities: Present full ROM Routine Skin Exam Skin: Present intact, dry and warm Routine Neurological Exam Neurological: Present alert, oriented X3 and CN II-XII intact Routine Psychiatric Exam Psychiatric: Present normal affect and normal thought process Objective Labs 07/27/25 17:01 Assessment & Plan Problem List (1) delivery delivered: Status: Acute Assessment and plan: PPD/POD#2 1. Continue routine care 2. Transition to PO meds. 3. Encourage to ambulate/ breast-feed 4. Anticipate discharge home today. (2) Category II heart rate tracing during labor and delivery: Status: Acute Time Spent With Patient Time: Total time spent is greater than 50% in coordination of care (as documented) at patient's floor/unit and/or counseling patient:
--- NOTE | 2025-07-29 08:34 | PD.LDDS ---
DS: Providers Provider Date of admission: 07/26/25 21:37 Primary care physician: Bree Chand CNM Admitting Provider: Leticia Díaz MD Attending Provider on Admission: Franky Santillan MD Consults: 07/27/25 05:53 Referral Routine Comment: Attending Provider on DC: Franky Santillan MD Discharging Provider: Franky Santillan MD DS: Diagnosis Discharge Diagnosis (1) Category II heart rate tracing during labor and delivery: Status: Acute (2) delivery delivered: Status: Acute Problem List Completed Was Problem List Reviewed/Reconciled?: Yes Summary/Hosp Course Brief History: 25-year-old 1 para 0 for complaints of contractions and leaking fluid. Reports movement. Patient was a transferred to [facility] OB clinic from [facility]. She had records. Her last. Was October 09, 2024. This gives due date July 16, 2025. Patient then had an 11-week ultrasound to change EDC to 07/30/2025. Patient then had a 21-week that also confirmed dates and put the baby growing in the 53rd percentile amnio sure today was negative for fluid. However BRIJESH was 1.9 and she had a BPP of 6 out of 8 so patient was kept for observation. And then progressed to 4 cm so admitted. Denies social habits. Denies surgery. Denies chronic illness. Patient is B+, antibody screen negative, RPR nonreactive, rubella immune, hepatitis B negative, hep C negative, HIV negative, GC and Chlamydia were negative. Her 1 hour was normal. Her A1c was 4.9. She had a cystic fibrosis screen that was negative and drug screen was negative. GBS negative Peripartum Data Delivery Method: Low Transverse Episiotomy Description: None Procedures: Procedures Operation Date: 07/27/25 05:15 Actual Procedure Side Surgeon p in OB Leticia Díaz MD Time Spent with Patient Time attestation: Total time spent providing and/or coordinating discharge services: Exam Vital Signs Temp Pulse Resp BP Pulse Ox O2 Del Method 98.0 F 80 16 124/82 98 Room Air 07/29/25 05:35 07/29/25 05:35 07/29/25 05:35 07/29/25 05:35 07/29/25 05:35 07/29/25 05:35 Discharge Plan Plan Patient Disposition: HOME (Self Care) Patient condition on transfer: Stable Prescriptions/Referrals Prescriptions/Med Rec: New hydrocodone-acetaminophen 5-325 mg Tablet 1 tab PO Q6H MDD 4 tablets PRN (Reason: Patient rated pain 7 to 8) 7 Days Qty: 12 0RF docusate sodium 100 mg Capsule 100 mg PO BID 10 Days Qty: 20 0RF ibuprofen 800 mg tablet 800 mg PO Q8HR 10 Days Qty: 30 0RF Continued Classic 28 mg iron- 800 mcg tablet 1 tab PO QDAY Referrals: Bree Chand CNM [Primary Care Provider, [employer]] Franky Santillan MD [Physician, [employer]] Patient/Caregiver Discharge Instructions Discharge Activity: activity as tolerated and other Other Discharge Activity Instructions:: vaginal rest, no heavy lifting more than 10 pounds for 6 weeks[address] while taking narcotic. keep incision clean and dry, do not submerge Other Discharge Diet Instructions: regular Education Materials: After Delivery [place] Concerns, Breast Care After , Understanding Depression, : Caring for Yourself, C Section Dc, Feel Healthy After Print Language: Tamazight Activity Restrictions/Additional Instructions: follow up with CLAYTON Chand in 1 to 2 weeks for incision check, call clinic to schedule appointment Stand Alone Forms: Deepti Award Info., Patient Portal Info Letter, DC from Surgery Discharge Order Discharge Orders: Discharge (Routine); Ordered 07/29/25 Ordered By: Franky Santillan Planned Discharge Date 07/29/25
[2025-07-29] MEDS: PRENATAL VITAMIN/FE FUM/FA TABLET 1 TAB PO (08:40)
[2025-07-29] MEDS: IBUPROFEN TAB 400 MG TABLET 800 MG PO (12:14)
== END 2025-07-29 13:05 | disposition home or self-care (01) | DRG 540 ==
LOC: S4SN 17:35 → S4SX 17:39 → S4NX 07-27 05:30 → S4SX 07-27 06:28
PROVIDERS: Admitting Provider Obstetrics & Gynecology; PCP Advanced Practice Midwife; Visit Provider Obstetrics & Gynecology
PROC: 10D00Z1 Extraction of Products of Conception, Low, Open Approach (ICD-10-PCS; CPT 59514; principal; 2025-07-27 05:00)
DX: O76 Abnormality in fetal heart rate and rhythm complicating labor and delivery (principal); Z3A.39 39 weeks gestation of pregnancy; Z37.0 Single live birth
CPT/HCPCS: 36415; 59025; 59409; 76805; 76819; 84112; 85025; 86780; 86850; 86900; 86901; 94762; A4217; A4314; A4649; J0689; J1885; J2250; J2274; J2590; J2704; J2795; J3010; J3290; J3490; J7120; A9270; J2270